=== PATIENT | female | born 1955 | race Caucasian/White ===

== ENCOUNTER 2022-11-25 12:13 | Outpatient (CLI) | payer BC, SELFPAY ==
[2022-11-25 14:06] LABS: Chloride* 102 mmol/L (96-114); Sodium* 140 mmol/L (135-149)
[2022-11-25 14:07] LABS: Potassium* 5.2 mmol/L (3.6-5.1)
[2022-11-25 14:09] LABS: Estimated Glomerular Filt Rate 63 ml/min
[2022-11-25 14:10] LABS: Blood Urea Nitrogen* 23 mg/dL (7-30); Calcium* 9.4 mg/dL (8.4-10.6); Carbon Dioxide* 32 mmol/L (20-32); Glucose* 95 mg/dL (60-115)
[2022-11-25 14:34] LABS: Vitamin D 25 Hydroxy* 47 ng/mL (30-80)
== END 2022-11-25 12:14 | disposition home or self-care (01) ==
PROVIDERS: PCP Family Medicine; Visit Provider Family Medicine
DX: I10 Essential (primary) hypertension (principal); E03.9 Hypothyroidism, unspecified; E55.9 Vitamin D deficiency, unspecified
CPT/HCPCS: 80048; 82306; 84443

== ENCOUNTER 2023-04-03 10:57 | Emergency (ER) | payer BC, SELFPAY ==
[2023-04-03 11:01] VITALS: BP 133/97; PULSE 66; RESP 20; TEMP 36.3; O2SAT 90; BMI 51.5
--- NOTE | 2023-04-03 13:41 | CRLHL7_ITS ---
For Patients: As a result of the Century Cures Act, medical imaging exams and procedure reports are released immediately into your electronic medical record. You may view this report before your referring provider. If you have questions, please contact your health care provider. INDICATION: Leg pain and swelling. TECHNIQUE: Ultrasound venous duplex lower extremity bilateral. Compression venous exam was performed using pino-scale, color Doppler, and spectral Doppler imaging. COMPARISON: None. FINDINGS: Sonographic imaging demonstrates the common femoral, deep femoral, superficial femoral, popliteal, posterior tibial and greater saphenous veins to be fully compressible with normal color Doppler blood flow in both lower extremities. There is moderate superficial soft tissue swelling of the right calf. IMPRESSION: No evidence of deep venous thrombosis. Moderate superficial soft tissue swelling of the right calf. Dictated by Charan Porter MD @ 04/03/2023 3:45:35 PM (Electronically Signed)
[2023-04-03 14:55] VITALS: BP 150/81; PULSE 62; O2SAT 94
--- NOTE | 2023-04-03 14:56 | ED.NURSE ---
Pt R leg elevated with pillows and blankets.
--- NOTE | 2023-04-07 14:00 | ED.GENADULT ---
HPI - General Adult General Chief complaint: Edema Stated complaint: R calf swollen Time Seen by Provider: 04/03/23 13:28 History of Present Illness HPI narrative: 68-year-old woman presenting to the emergency department upon recommendation of care provider for evaluation redness in the right lower extremity. Sounds as though this may have been going on for a day or 2. Does have a history of claudication in this right lower leg. She has noticed a little swelling on the left as well. Not really having pain. No chest pain or shortness of breath. No noted trauma. No fever. Does not recall a history of cellulitis. Does have history of peripheral edema. Related Data Previous Rx's Medication Instructions Recorded fluticasone 250 mcg-salmeterol 50 1 inh inhalation BID #60 ea 06/16/22 mcg/dose blistr powdr for inhalation (Advair Diskus) betamethasone dipropionate 0.05 % 1 applic topical BID PRN itching 10/14/22 topical ointment #45 grams levothyroxine 50 mcg tablet 50 mcg PO QDAY #90 tabs 11/25/22 trazodone 100 mg tablet 100 mg PO QHS #90 tabs 11/25/22 bupropion HCl 300 mg 24 hr tablet, 300 mg PO QAM #90 tabs 12/21/22 extended release albuterol sulfate 90 mcg/actuation 2 puff inhalation Q4H PRN 01/09/23 aerosol inhaler shortness of breath or wheezing #8.5 grams tiotropium bromide 2.5 2 inh inhalation Q24H #4 grams 01/09/23 mcg/actuation mist for inhalation (Spiriva Respimat) escitalopram oxalate 20 mg tablet 20 mg PO DAILY #90 tabs 02/06/23 ergocalciferol (vitamin D2) 1,250 50,000 unit PO QWEEK #12 caps 02/16/23 mcg (50,000 unit) capsule diclofenac sodium 75 mg 75 mg PO BID PRN pain #60 tabs 03/09/23 tablet,delayed release nicotine 14 mg/24 hr daily 1 patch transdermal QDAY #14 ea 03/26/23 transdermal patch nicotine 21 mg/24 hr daily 1 patch transdermal QDAY #14 ea 03/26/23 transdermal patch nicotine 7 mg/24 hr daily 1 patch transdermal Q24H #28 ea 03/26/23 transdermal patch Allergies Allergy/AdvReac Type Severity Reaction Status Date / Time No Known Drug Allergies Allergy Verified 04/03/23 11:06 Review of Systems Status of ROS: Reports: 6 or more systems reviewed and unremarkable except as noted in History and below [facility] Medical History Hypertension ?I10 - Essential (primary) hypertension (ICD-10) Generalized anxiety disorder ?F41.1 - Generalized anxiety disorder (ICD-10) Psoriasis ?L40.9 - Psoriasis, unspecified (ICD-10) Vitamin D deficiency ?E55.9 - Vitamin D deficiency, unspecified (ICD-10) Tubular adenoma of colon (04/03/20) ?D12.6 - Benign neoplasm of colon, unspecified (ICD-10) Tobacco use disorder (03/17/08) ?F17.200 - Nicotine dependence, unspecified, uncomplicated (ICD-10) Moderate episode of recurrent major depressive disorder (09/05/21) ?F33.1 - Major depressive disorder, recurrent, moderate (ICD-10) Insomnia ?G47.00 - Insomnia, unspecified (ICD-10) Hypothyroidism (12/21/21) ?E03.9 - Hypothyroidism, unspecified (ICD-10) Claudication of right lower extremity ?I73.9 - Peripheral vascular disease, unspecified (ICD-10) Chronic obstructive pulmonary disease ?J44.9 - Chronic obstructive pulmonary disease, unspecified (ICD-10) Alcohol dependence in remission ?F10.21 - Alcohol dependence, in remission (ICD-10) Surgical History History of total bilateral knee replacement (2018) ?Z96.653 - Presence of artificial knee joint, bilateral (ICD-10) Social History Narrative: single, no kids, retired from [employer], alcoholic currently sober, smoker Smoking Status: Former smoker How often do you have a drink containing alcohol: never How often do you have six or more drinks on one occasion: Never AUDIT-C Alcohol total score: 0 Non-prescribed substance use: denies use Little interest or pleasure in doing things: nearly every day Feeling down, depressed, or hopeless: nearly every day Exam Narrative: Exam Narrative: Pleasant. NAD. Breathing easily. Lungs appear to be clear. Heart with regular rate rhythm. Abdomen is overweight soft. Cranial nerves 2-12 intact. GCS 15. Well-perfused peripherally though 2+ pitting edema in lower extremities though right greater than left. There is mild erythema up to mid calf on the right leg. A patch of what appears to be superficial venous varicosities on the left upper inner acevedo area. This right leg is not particularly tender to palpation. On reexamination I do appreciate some mild calor. Mild induration also the skin. Const: Documenting provider has reviewed patient's vital signs: yes Course Vital Signs Vital signs: Initial Vital Signs Temperature 97.4 F L 04/03/23 11:01 Temperature Source Temporal Artery Scan 04/03/23 11:01 Pulse Rate 66 04/03/23 11:01 Respiratory Rate 20 04/03/23 11:01 Blood Pressure 133/97 H 04/03/23 11:01 Blood Pressure Mean 109 H 04/03/23 11:01 Pulse Oximetry 90 04/03/23 11:01 Oxygen Delivery Method Room Air 04/03/23 11:01 Vital Signs Temperature 97.4 F L 04/03/23 11:01 Pulse Rate 66 04/03/23 11:01 Respiratory Rate 20 04/03/23 11:01 Blood Pressure 133/97 H 04/03/23 11:01 Pulse Oximetry 90 04/03/23 11:01 Oxygen Delivery Method Room Air 04/03/23 11:01 Temperature 97.4 F L 04/03/23 11:01 Pulse Rate 62 04/03/23 14:55 Respiratory Rate 20 04/03/23 11:01 Blood Pressure 150/81 H 04/03/23 14:55 Pulse Oximetry 94 04/03/23 14:55 Oxygen Delivery Method Room Air 04/03/23 14:55 Medical Decision Making MDM Narrative Medical decision making narrative: Certainly DVT and cellulitis are in the differential. Could just be some congestive changes. I think given mobility asymmetrical swelling would be prudent to do an ultrasound. Ultrasound of both lower extremities. ---I discussed findings with slot manager. Noted edema of the right lower leg. Suspicious for cellulitis I would say. COMPARISON: None. FINDINGS: Sonographic imaging demonstrates the common femoral, deep femoral, superficial femoral, popliteal, posterior tibial and greater saphenous veins to be fully compressible with normal color Doppler blood flow in both lower extremities. There is moderate superficial soft tissue swelling of the right calf. IMPRESSION: No evidence of deep venous thrombosis. Moderate superficial soft tissue swelling of the right calf. Following this study did place right leg in particular elevated above level of heart to assess for improvement. Color and calor did not change much at all. I think confirming diagnosis of cellulitis here. Important also to mobilize fluid. I did wrap with Tyler wraps both lower extremities. See patient discharge plan. Medical Records Medical records reviewed: Yes I reviewed the patient's medical records Discharge Plan Discharge Clinical Impression: Cellulitis, Edema, peripheral Patient Disposition: Home, Self-Care Condition: Stable Additional Instructions: It is extremely important that you elevate your legs at least as we did here, particularly your right leg, over this next week when at rest. You can decide whether you want use the Tyler wraps we put on here or use your own compression stockings. I am glad that you have a friend who can help you get these on. Be seen for marked increase in redness, pain, associated fever. Cephalexin from [facility] Prescriptions: No Action fluticasone propion-salmeterol [Advair Diskus] 250-50 mcg/dose blister with device 1 inh inhalation BID Qty: 60 12RF betamethasone dipropionate 0.05 % ointment 1 applic topical BID PRN (Reason: itching) Qty: 45 2RF trazodone 100 mg tablet 100 mg PO QHS Qty: 90 1RF bupropion HCl 300 mg tablet extended release 24 hr 300 mg PO QAM Qty: 90 1RF Spiriva Respimat 2.5 mcg/actuation mist 2 inh inhalation Q24H Qty: 4 4RF albuterol sulfate 90 mcg/actuation HFA aerosol inhaler 2 puff inhalation Q4H PRN (Reason: shortness of breath or wheezing) Qty: 8.5 5RF levothyroxine 50 mcg tablet 50 mcg PO QDAY Qty: 90 3RF escitalopram oxalate 20 mg tablet 20 mg PO DAILY Qty: 90 0RF ergocalciferol (vitamin D2) 1,250 mcg (50,000 unit) capsule 50,000 unit PO QWEEK Qty: 12 1RF diclofenac sodium 75 mg tablet,delayed release (DR/EC) 75 mg PO BID PRN (Reason: pain) Qty: 60 5RF nicotine 21 mg/24 hr patch 24 hour 1 patch transdermal QDAY Qty: 14 0RF nicotine 14 mg/24 hr patch 24 hour 1 patch transdermal QDAY Qty: 14 0RF nicotine 7 mg/24 hr patch 24 hour 1 patch transdermal Q24H Qty: 28 3RF Follow Up/Referrals: Omar Dominguez MD [Primary Care Provider] - Stand Alone Forms: My[facility] Info Instructions
== END 2023-04-03 16:15 | disposition home or self-care (01) ==
PROVIDERS: Emergency Provider Family Medicine; PCP Family Medicine
DX: L03.116 Cellulitis of left lower limb (principal); L03.115 Cellulitis of right lower limb; R60.9 Edema, unspecified
CPT/HCPCS: 93970; 99284

== ENCOUNTER 2023-12-01 11:56 | Emergency (ER) | payer BC, SELFPAY ==
[2023-12-01] VITALS (9 sets, daily range): BP systolic 137–146; BP diastolic 84–103; PULSE 56–75; RESP 20; TEMP 36; O2SAT 82–97; BMI 49.8
--- NOTE | 2023-12-01 12:27 | XR_ITS ---
Final Report Patient: VICK VERDE Facility:?[facility] Patient ID:?[id number] Site Patient ID:?[id number] Site :?1955 Study:?XRay Chest PA & LATERAL-12/01/2023 12:56:20 PM Ordering Physician:ELIAS Final Report: INDICATION: Chest pain, dyspnea. TECHNIQUE: Chest radiographs, 2 views. COMPARISON: CT chest 07/10/2021. FINDINGS: Cardiovascular/Mediastinum: Stable cardiac silhouette. Tortuous thoracic aorta. Unremarkable. Lungs: Patchy ill-defined opacification of the right lower lobe, with obscuration of several the lower thoracic vertebral bodies. Linear, bandlike opacification of the lung bases bilaterally, likely subsegmental atelectasis and/or scarring. No pulmonary vascular congestion. Airways: Trachea remains midline. Pleura: Persistent blunting of the right costophrenic angle likely due to scarring. No pleural effusions or pneumothorax. Bones: No acute osseous abnormalities. Old healed right-sided rib fractures. 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 Severe degeneration of the right acromioclavicular joint. Degenerative changes of the thoracic spine. Upper abdomen: Unremarkable. IMPRESSION: Findings suspicious for a right lower lobar pneumonia in the appropriate clinical setting. Dictated by Eugenio Araiza MD @ 12/02/2023 2:30:16 AM (Electronic Signatur
--- OUTSIDE RECORDS SUMMARY | 2023-12-01 12:37 | XMS_ITS | Data Portability ---
Author Name Unknown Address [address] [place] [address] Phone [phone] Organization [facility] Address [address] [place] [address] Care Team Providers Care Accounts Payable Or Receivable Clerk Name Role Phone [facility] OTHER Assessment Encounter Date Assessment Date Assessment LastModified by Organization Details LastModified Time 09/19/2021 09/19/2021 The above findings do not support the presence of documented illness that would preclude the patient from participation in inpatient chemical dependence treatment. Based on patient history and the above findings, there's no evidence of communicable disease at this time. Okay to utilize [place] Routine Standing Orders as Needed. Not available 09/19/2021 11:10:43 Plan of Treatment Reminders Order Date Submit Date Provider Last Modified By Organization Details Last Modified Time Details Appointments None recorded. Lab None recorded. Referral None recorded. Procedures None recorded. Surgeries None recorded. Imaging None recorded. Medication Orders Advair Diskus 250 mcg-50 mcg/dose powder for inhalation 2020 [facility], [address] [place] [address], [place] [address], [place], [address], 17:47:32 albuterol sulfate HFA 90 mcg/actuati on aerosol inhaler 2020 [facility], [address] [place] [address], [facility] [address], [place], [address], 17:47:32 hydroxyzine pamoate 25 mg capsule 2020 [email or web address] Not available 08:50:43 trazodone 50 mg tablet 2020 021 [email or web address] Not available 08:50:43 Patient TargetsNo targets recorded. Patient Instructions Encounter Date Encounter Id Patient Instructions Last Modified By Organization Details Last Modified Time 09/19/2021 [id number] Patient is clear ed for admission into chemical dependence treatment facility. The patient is free of communicable diseases per patient self. Counseled on smoking cessation and discussed pharmacologic and non-pharmacologic options for quitting. Call -NOW for free smoking cessation support. Ok to admit with current standing orders per facility. In house psychiatrist referrer Recommend frequent hand washing and social distancing, reporting any signs/ sx of COVID-19 to nursing staff immediately. ATTN Nursing: please continue to check/ record temperature 2x daily and screen for cough, fever, sob. Continue current care plan at treatment facility. Standing orders signed per facility request. Infection control is important while in a congregant living facility, especially amid the COVID-19 pandemic. The following measures can help to mitigate the spread of infections: 1. Frequent hand washing with soap and water or hand emergency medicine physician. 2. Avoid touching your face. 3. Maintain social distance of at least 6 feet apart from other people. 4. Wear a mask or cloth face covering if available. 5. Report any fever, malaise, cough, or shortness of breath to nursing staff immediately. Quarantine from others if these symptoms develop. [email or web address] Not available 09/19/2021 11:25:00 Patient advised to continue maintaining contact with helpful treatment resources and/or support groups even if he is initially able to achieve abstinence. Patient to contact a provider or clinic if concerned about any increased risk of relapse due to increased stress, anxiety, family issues, work-related problems, or increased craving. Educated on the importance of quitting smoking. Discussed pharmacologic and nonpharmacologic methods of quitting. Follow-up actions: Advised patient to call [phone] for free smoking cessation support and resources. Due to the covid-19 situation, this visit is being conducted via telemedicine/video conference per the direction of state and federal recommendations. I have reviewed this with my client have consented to services being conducted in this format. [email or web address] Not available 09/19/2021 11:25:13 Reason for Referral None Reported. Problems Name Status Onset Date Resolution Date Notes Provider Name and Address Organization Details Recorded Time Pulmonary emphysema Active Isabella dean, [employer] 09/19/2021 11:13:09 Vitamin D deficiency Active Isabella Sappl null, [employer] 09/19/2021 11:13:39 Alcohol dependence Active last use 09/04/21, 1.75 liters of vodka q 2 days, started at the age of 16 Isabella Sappl null, [employer] 09/19/2021 11:15:02 Insomnia Active 09/19/20 21 Ayaan Payne NP, [address] [facility], [place], [address] , [employer] 09/19/2021 11:18:02 Anxiety Active Isabella dean, [employer] 09/19/2021 11:24:18 Problem Notes None recorded. Procedures Surgical History Date Name Laterality Status Provider Name and Address Organization Details Recorded Time Knee Replacement completed Isabella Rajput oel dianne, [employer] 09/19/2021 11:16:30 Imaging Results None recorded. Procedure Notes None recorded. Medical Equipment None Reported. Allergies No known drug allergies Medications Name Sig Start Date Stop Date Status Note LastModified by Organization Details LastModified Time trazodone 50 mg tablet Take 1 tablet as needed by oral route at bedtime. 2020 active Not Available Not Available Not Avai lable Advair Diskus 250 mcg-50 mcg/dose powder for inhalation Inhale 1 puff twice a day by inhalation route. 2020 active RINSE MOUTH AFTER USE Not Available Not Available Not Available albuterol sulfate HFA 90 mcg/actuatio n aerosol inhaler Inhale 2 puffs every 4 hours by inhalation route as needed. 2020 active Not Available Not Available Not Avai lable hydroxyzine pamoate 25 mg capsule Take 1 capsule as needed by oral route at bedtime. 2020 active Not Available Not Available Not Avai lable Vitamin D2 25,000 unit capsule Take 2 capsules every week by oral route. active Not Available Not Available No t Available fluticasone furoate 100 mcg-vilanter ol 25 mcg/dose inhalation powder Inhale 1 puff twice a day by inhalation route. active Not Available Not Available No t Available Vitals Date Recorded Body height Body mass index (BMI) Body weight Respiratory rate Body temperature Oxygen saturation Oxygen saturation in Arterial blood by Pulse oximetry Systolic blood pressure Diastolic blood pressure Provider Name and Address Organization Details Last Updated DateTime 162.56 cm 40.2 kg/m2 269111. 61 g 16 /min 97.4 [degF] 100 % 100 % 130 mm[Hg] 80 mm[Hg] Isabella Claire dianne [employer] 11:11:14 Social History Question Answer Notes LastModified by [employer] 24 ion Details LastModified Time Tobacco Smoking Status Former Smoker quit 3 months ago Isabella dean [employer] 09/19/2021 11:15:46 What Is Your Level Of Alcohol Consumption? Heavy Information not available 09/19/2021 Are You Blind Or Do You Have Difficulty Seeing? No Information not available 09/19/2021 What Is Your Level Of Caffeine Consumption? Occasional Information not available 09/19/2021 Are You Deaf Or Do You Have Serious Difficulty Hearing? No Information not available 09/19/2021 What Is The Highest Grade Or Level Of School You Have Completed Or The Highest Degree You Have Received? [id number] Information not available 09/19/2021 What Was The Date Of Your Most Recent Tobacco Screening? 09/19/2021 Information not available 09/19/2021 What Is Your Relationship Status? Information not available 09/19/2021 Are You Sexually Active? No Information not available 09/19/2021 Do You Feel Stressed (tense, Restless, Nervous, Or Anxious, Or Unable To Sleep At Night)? [id number] Information not available 09/19/2021 Do You Use Any Illicit Or Recreational Drugs? No Information not available 09/19/2021 Do You Or Have You Ever Used Any Other Forms Of Tobacco Or Nicotine? No Information not available 09/19/2021 Sex: Female Functional Status Question Answer Note LastModified by Organization D etails LastModified Time Are you able to care for yourself? Yes Information n ot available 09/19/2021 Mental Status Question Answer Note LastModified by Organization D etails LastModified Time Do you have difficulty concentrating, remembering or making decisions? No Information no t available 09/19/2021 Family History Nothing Reported. Medical History No medical history recorded. Gynecological HistoryNo gynecological history recorded. Obstetrics History GPAL:G 0 P 0 0 0 0 Past Encounters Encounter ID Performer Location Encounter Start Date Encounter Closed Date Diagnosis/Indication [id number] Ayaan Payne NP, [address] [address] 09/19/2021 11:07:54 09/20/2021 03:09:37 Alcohol dependence Pulmonary emphysema Insomnia Vitamin D deficiency Renewal of prescription Health Concerns Section Related Observation LastModified by Organization Detai ls LastModified Time None Recorded Concern Status LastModified by Organization Details LastModified Time None Recorded Advance Directives Directive None Recorded Payers Encounter Date Sequence Insurance Name Policy Number Policy Currie Covered Member ID Currie Member ID Guarantor Name 09/19/2021 1 [id number]MEDICA[place]AC[place] - HMO) [id number] Eugenia White [id number] Eugenia White Notes Date Note Type Note Provider Name and Address Organization Details Recorded Time 09/19/2021 text/html HPI Notes: This is a New patient who Presents for H+P as required for admission A 66 years old patient residing at [facility] with a history of alcohol abuse, anxiety. Patient admitted for alcohol abuse (oral ), she denies use of other drugs. Patient presents for an admission H&P. required for admission to a chemical dependence treatment program. She has used alcohol for 50 years. last use was 09/04/21, she denies cravings and withdrawal symptoms. Patient drink about 1.75 ml of vodka daily, she denies hx of seizures, palpitation and tremor. She denies suicidal thoughts, states she was hospitalized for suicidal attempt in the past. Patient reports he is sexually active. Patient former smoker patient: Denies . Covid Vaccines:Had Covid vaccines The patient is established with a primary care provider. The patient is not established with a mental health provider. The patient has been hospitalized recently. Start time of video conference: 1000 End time of video conference: 1025 Location of patient: [facility] Location of medical assisting program director: Home Location of provider: Home Patient verbally consented to receiving visit videoconference. A [employer] videoconference visit is being conducted rather than a face to face visit due to CDC recommendations for social distancing amid the COVID-19 pandemic. Do you have a fever?: no Do you have a cough?: no Do you have shortness of breath?: no Verbally consent given for services, release of information, and record sharing. Written consent given by patient for services, release of information, and record sharing. Notice of Privacy Practices presented at this time. Written consent to be faxed by facility staff to [facility]. Ayaan Payne NP, [address] [facility], [place], [address], [facility] 09/19/2021 17:47:53 OBGyn Episode No OBEpisode recorded.
--- OUTSIDE RECORDS SUMMARY | 2023-12-01 12:37 | XMS_ITS | Clinical Summary ---
Author Name Unknown Organization [facility] Address [place], [place] [address] Care Team Providers Care Lumite Injector Name Role Phone VinDami armstrong Primary Care Provider [phone] Allergies No known active allergies Medications Medication Sig Dispensed Refills Start Date End Date Status ergocalciferol (VITAMIN D2; DRISDOL) 50,000 unit capsuleIndications :Vitamin D deficiency Take 1 Capsule (50,000 units) by mouth once weekly. 4 Capsule 0 09/13/2021 Active melatonin 10 mg capIndications:Ins omnia, unspecified type Take two capsules by mouth at bedtime. 90 Capsule 0 09/11/2021 Active Additional Information Patient taking differently: 10 mgOral BEDTIME, Reported on 12/21/2021 traZODone (DESYREL) 50 mg tabletIndications: Insomnia, unspecified type Take 1 Tablet (50 mg) by mouth at bedtime if needed for Sleep. 30 Tablet 0 09/11/2021 Active hydrOXYzine pamoate (VISTARIL) 25 mg capsuleIndications :Anxiety Take 1 Capsule (25 mg) by mouth at bedtime if needed for Anxiety. 30 capsule. 0 09/11/2021 Active albuterol HFA (PRO-AIR; VENTOLIN; PROVENTIL) 90 mcg/actuation inhalerIndications :Smokers' cough (HC),Wheezing Inhale 1-2 Puffs by mouth every 4 hours if needed for shortness of breath 18 g 0 09/11/2021 Active clobetasol 0.05% (TEMOVATE 0.05% OINTMENT) 0.05 % ointmentIndication s:Psoriasis Apply to affected area 2 times per day for up to 2 weeks as directed. 45 g 0 09/12/2021 Active fluticasone propion-salmeteroL (ADVAIR) 250-50 mcg/Dose diskus inhaler Inhale 1 Puff by mouth every 12 hours. 0 Active levothyroxine (SYNTHROID) 50 mcg tablet Take 50 mcg by mouth before breakfast. 0 Active Active Problems Problem Noted Date Diagnosed Date Other emphysema 12/21/2021 Alcohol use disorder, severe, dependence 022 Vitamin D deficiency 12/21/2021 Asthma 12/21/2021 Hypothyroid 12/21/2021 Major depressive disorder, recurrent episode, mo derate 09/05/2021 Tubular adenoma of colon 04/03/2020 Overview: The polyps removed from your colon were high risk polyps, no evidence of cancer, will need repeat colonoscopy in 5 years. Pain in both knees 11/27/2017 Pain, joint, knee, right 11/27/2017 Pain in joint of left knee 11/27/2017 Pain in both lower legs 11/27/2017 Claudication 11/27/2017 Depression with anxiety 03/22/2010 Unspecified menopausal and postmenopausal disord er 03/17/2008 Tobacco use disorder 03/17/2008 Plantar fascial fibromatosis 03/17/2008 Other psoriasis 03/17/2008 Alcohol dependence in remission Overview: She has been in treatment on more than one occasion. She has used AA in the past, and does like going to meetings. She has two sponsors that she feels very close to . She feels strongly at present that she can quit by these means, and does not need a return to treatment. She has had 3 DUI in the past and has gone to halfway for this. Last was 10 years ago. Polyp of colon Immunizations Name Administration Dates Next Due COVID-19 vaccine (Fabi-J&J) JOAN MARROQUIN 1 Pneumococcal Poly,23-Valent (Pneumovax) 03/27/20 20 Tdap 03/27/2020 Zoster (Shingrix-RZV, recombinant) 06/07/2020, Family History Medical History Relation Name Comments Suicidality Brother 6 Mikel 17 years ago on August 11 Cancer-colon Father age 84 Other Father copd Psoriasis Father Cancer-colon Maternal Uncle Other Paternal Grandfather farmers lung Hypertension Sister 1 Carmelina Relation Name Status Comments Brother 1 Felipe Alive Brother 2 Omar Alive Brother 3 Edinson Alive Brother 4 Peewee Alive Brother 5 Harjit Alive Brother 6 Mikel Brother 7 William Alive he is her drink ing partner Father Maternal Grandfather Maternal Grandmother Maternal Uncle Other Mother Irasema (Age 93) Recently d ied in March of 2021 Paternal Grandfather Paternal Grandmother Sister 1 Carmelina Alive Sister 2 Amanda Alive Sister 3 Liza Alive Is her Twin Social History Tobacco Use Types Packs/Day Years Used Date Smoking Tobacco: Former Cigarettes 1 50 0 03/22/1970 - 03/22/2020 Smokeless Tobacco: Never Tobacco Cessation:Counseling Given: No Comments:quit 1 month ago Alcohol Use Standard Drinks/Week Comments Yes 7 (1 standard drink = 0.6 oz pur e alcohol) vodka- half of a 1.75/day PHQ-2 Answer Date Recorded PHQ-2 TOTAL SCORE 4 12/21/2021 Social Connections Answer Date Recorded Frequency of Communication with Friends and Fami ly Not on file 10/19/2021 Alcohol Use Answer Date Recorded How often do you have a drink containing alcohol ? 4 09/04/2021 How many drinks containing a lcohol do you have on a typical day when you are drinking? 2 09/04/2021 How often do you have five or more drinks on one occasion? 4 09/04/2021 Financial Resource Strain Answer Date R ecorded Difficulty of Paying Living Expenses Not on file 10/19/2021 Difficulty of Paying Living Expenses Not on file 10/19/2021 Education Answer Date Recorded What is the highest level of school you have completed or the highest degree you have received? Some college, no degree 09/04/2021 Sex and Gender Information Value Date Recorded Sex Assigned at Not on file Gender Identity Not on file Sexual Orientation Not on file Obstetrics History Last Filed Vital Signs Vital Sign Reading Time Taken Comments Blood Pressure 126/89 12/24/2021 6:05 AM PIN STICKER Pulse 84 12/24/2021 6:05 AM PIN STICKER Temperature 36.6 ??C (97.8 ??F) 12/24/2021 6:05 AM CS T Respiratory Rate 12 12/24/2021 6:05 AM PIN STICKER Oxygen Saturation 94% 12/24/2021 6:05 AM PIN STICKER Inhaled Oxygen Concentration - - Weight 113.9 kg (251 lb) 12/21/2021 4:00 AM PIN STICKER Height 162.6 cm (5' 4) 12/21/2021 4:00 AM PIN STICKER Body Mass Index 43.08 12/21/2021 4:00 AM PIN STICKER Plan of Treatment Health Maintenance Due Date Last Done Comments Mammogram for age 45-[address] (for lung CA) ag e 50-80 2007 BMI (ht and wt on same day) for age 18+ 06/07/2021 06/07/2020, 08/25/2018, 05/26/2018, Additional history exists DEXA/DXA scan for age 65+ 2022 Pneumococcal series for age 65+ (2 of 2 - PCV) 2022 03/27/2020 Lipids for age 45-75 01/16/2022 01/16/2017 Depression screening for age 12+ 12/20/2022 12/20/2021, 09/03/2021, 08/24/2020, Additional history exists COVID-19 vaccine series (2 - 2022- season) 2023 09/12/2021 Influenza for age 65+ 06/19/2023 Colonoscopy through age 75 04/03/2025 04/03/2020 Tetanus booster 03/27/2030 03/27/2020 Hepatitis C screening for ag e 18-79 Completed 03/27/2020 Tdap Completed 03/27/2020 Zoster (shingles) series for age 50+ Completed 06/07/2020, 03/27/2020 Advance Directives Latest Code Status on File Code Status Date Activated Date Inactivated Comments Full Code 12/23/2021 2:40 PM 12/24/2021 4:43 PM Question Answer Comments Code Status Discussion: Reviewed Preferences Code Status History Code Status Date Activated Date Inactivated Comments Full Code 12/21/2021 4:32 AM 12/23/2021 2:40 PM Question Answer Comments Code Status Discussion: Unable to Assess Preferences, Provider to review later Full Code 09/05/2021 10:13 AM 09/17/2021 2:26 PM Question Answer Comments Code Status Discussion: Reviewed Preferences Full Code 09/04/2021 4:17 PM 09/05/2021 10:13 AM Question Answer Comments Code Status Discussion: Unable to Assess Preferences, Provider to review later Full Code 04/03/2020 9:35 AM 04/03/2020 3:25 PM Question Answer Comments Code Status Discussion: Discussed Care Teams Lumite Injector Relationship Specialty Start Date End Date Dami Recio DO [address] [place] [address] PCP - General Family Practice 05/30/20
[2023-12-01 13:01] LABS: PCR FLU A Negative PCR FLU A (Negative); PCR FLU B Negative PCR FLU B (Negative); PCR RSV Negative PCR RSV (Negative); SARS PCR* Negative SARS-CoV-2 (Negative)
--- NOTE | 2023-12-01 13:07 | ED.SOB ---
HPI - SOB/Dyspnea General Date Seen: 12/01/23 Chief Complaint: Shortness of Breath/Dyspnea Stated Complaint: Shortness of breath Time Seen by Provider: 12/01/23 12:18 Source: patient Mode of arrival: ambulatory Limitations: no limitations History of Present Illness HPI Narrative: Patient is a 68-year-old female presenting to the emergency department for shortness of breath. She has a history of COPD and says she is trying to quit smoking. Last cigarette was 2 days ago. She states has been going on for a week now it feels like her previous COPD episodes. She has been using home inhalers with improving her symptoms but she states symptoms are going away so she came to emergency department to be evaluated. Denies fevers, chills, weakness, numbness, headache, vision changes. She states she has occasional dizziness and chest pain but is not having no symptoms at this time. States chest pain is relatively mild. She also states she stop taking her Synthroid a couple months ago and has been weaning herself off her depression medication. She has been doing this on her own without input of her primary care provider. Has not had any abdominal pain, diarrhea, constipation. Not aware of any sick contacts. Has not noticed any weight gain or lower extremity swelling. No history of blood clot Related Data Home Medications Medication Instructions Recorded Confirmed bupropion HCl 300 mg 24 hr tablet, 100 mg PO QAM 12/01/23 12/01/23 extended release escitalopram oxalate 20 mg tablet 5 mg PO DAILY 12/01/23 12/01/23 Previous Rx's Medication Instructions Recorded levothyroxine 50 mcg tablet 50 mcg PO QDAY #90 tabs 11/25/22 ergocalciferol (vitamin D2) 1,250 50,000 unit PO QWEEK #12 caps 02/16/23 mcg (50,000 unit) capsule albuterol sulfate 90 mcg/actuation 2 puff inhalation Q4H PRN 06/18/23 aerosol inhaler shortness of breath or wheezing #8.5 grams tiotropium bromide 2.5 2 inh inhalation Q24H 90 days #4 06/18/23 mcg/actuation mist for inhalation grams (Spiriva Respimat) betamethasone dipropionate 0.05 % 1 applic topical BID PRN itching 11/16/23 topical ointment #45 grams trazodone 100 mg tablet 100 mg PO QHS #90 tabs 11/16/23 azithromycin 500 mg tablet 500 mg PO DAILY 5 days #5 tabs 12/01/23 prednisone 20 mg tablet 40 mg (2 x 20 mg) PO DAILY #10 tabs 12/01/23 Allergies Allergy/AdvReac Type Severity Reaction Status Date / Time No Known Drug Allergies Allergy Verified 12/01/23 12:12 Review of Systems Status of ROS: Reports: 10 or more systems reviewed and unremarkable except as noted in History and below PFSH PFS Medical History Hypertension ?I10 - Essential (primary) hypertension (ICD-10) Generalized anxiety disorder ?F41.1 - Generalized anxiety disorder (ICD-10) Psoriasis ?L40.9 - Psoriasis, unspecified (ICD-10) Vitamin D deficiency ?E55.9 - Vitamin D deficiency, unspecified (ICD-10) Tubular adenoma of colon (04/03/20) ?D12.6 - Benign neoplasm of colon, unspecified (ICD-10) Tobacco use disorder (03/17/08) ?F17.200 - Nicotine dependence, unspecified, uncomplicated (ICD-10) Moderate episode of recurrent major depressive disorder (09/05/21) ?F33.1 - Major depressive disorder, recurrent, moderate (ICD-10) Insomnia ?G47.00 - Insomnia, unspecified (ICD-10) Hypothyroidism (12/21/21) ?E03.9 - Hypothyroidism, unspecified (ICD-10) Claudication of right lower extremity ?I73.9 - Peripheral vascular disease, unspecified (ICD-10) Chronic obstructive pulmonary disease ?J44.9 - Chronic obstructive pulmonary disease, unspecified (ICD-10) Alcohol dependence in remission ?F10.21 - Alcohol dependence, in remission (ICD-10) Surgical History History of total bilateral knee replacement (2018) ?Z96.653 - Presence of artificial knee joint, bilateral (ICD-10) Social History Narrative: single, no kids, retired from [employer], alcoholic currently sober, smoker Smoking Status: Former smoker Do you use any of these nicotine containing products: None How often do you have a drink containing alcohol: never How often do you have six or more drinks on one occasion: Never AUDIT-C Alcohol total score: 0 Non-prescribed substance use: denies use Little interest or pleasure in doing things: several days Feeling down, depressed, or hopeless: several days Exam Narrative: Exam Narrative: Const: Well-nourished, Well-developed, in moderate distress Eyes: PERRL, no conjunctival injection, and symmetrical lids HENT: Atraumatic external nose and ears. Moist mucous membranes. Neck: Symmetric, trachea midline, No thyromegaly. CVS: RRR, No murmurs or gallops. Peripheral pulses 2+ and equal in all extremities RESP: Increased work of breathing, diffusely decreased breath sounds throughout her lung GI: Nontender/Nondistended, No rebound or guarding. MSK:Extremities w/o deformity, Normal Active ROM Skin: Warm, Dry. No rashes or lesions. Neuro: Normal Muscle tone, No focal neurological deficits. Psych: Awake, Alert, & Oriented x3. Appropriate mood and affect. Const: Vital Signs, click to edit/add: Vital Signs - 24 hr 12/01/23 12:15 12/01/23 12:36 12/01/23 12:45 Temperature 96.8 F L Pulse Rate 65 74 Pulse Rate [Pulse Oximeter] 67 Respiratory Rate 20 Blood Pressure Blood Pressure [Ri ght Upper Arm] 146/103 H Pulse Oximetry 91 82 L 86 L Oxygen Delivery Me thod Room Air 12/01/23 13:00 12/01/23 13:17 12/01/23 13:30 Temperature Pulse Rate 75 64 56 L Pulse Rate [Pulse Oximeter] Respiratory Rate Blood Pressure Blood Pressure [Ri ght Upper Arm] Pulse Oximetry 84 L 94 97 Oxygen Delivery Me thod 12/01/23 13:47 12/01/23 13:48 12/01/23 14:00 Temperature Pulse Rate 62 61 62 Pulse Rate [Pulse Oximeter] Respiratory Rate Blood Pressure 137/84 Blood Pressure [Ri ght Upper Arm] Pulse Oximetry 89 91 90 Oxygen Delivery Me thod Course Vital Signs Vital signs: Initial Vital Signs Temperature 96.8 F L 12/01/23 12:15 Temperature Source Temporal Artery Scan 12/01/23 12:15 Pulse Rate 67 12/01/23 12:15 Pulse Rhythm Regular 12/01/23 12:15 Pulse Strength 3+ Normal 12/01/23 12:15 Respiratory Rate 20 12/01/23 12:15 Blood Pressure 146/103 H 12/01/23 12:15 Blood Pressure Mean 117 H 12/01/23 12:15 Blood Pressure Position Sitting 12/01/23 12:15 Pulse Oximetry 91 12/01/23 12:15 Oxygen Delivery Method Room Air 12/01/23 12:15 Vital Signs Temperature 96.8 F L 12/01/23 12:15 Pulse Rate 67 12/01/23 12:15 Respiratory Rate 20 12/01/23 12:15 Blood Pressure 146/103 H 12/01/23 12:15 Pulse Oximetry 91 12/01/23 12:15 Oxygen Delivery Method Room Air 12/01/23 12:15 Temperature 96.8 F L 12/01/23 12:15 Pulse Rate 62 12/01/23 14:00 Respiratory Rate 20 12/01/23 12:15 Blood Pressure 137/84 12/01/23 13:47 Pulse Oximetry 90 12/01/23 14:00 Oxygen Delivery Method Room Air 12/01/23 12:15 Medications Administered Medications: Discontinued Medications Generic Name Dose Route Start Last Admin Trade Name Freq PRN Reason Stop Dose Admin Albuterol/Ipratropium 1 neb 12/01/23 12:27 12/01/23 13:23 Iprat-Albut 0.5-2.5 Mg/3 Ml Neb IH 12/01/23 12:28 1 neb ONCE ONE Administration Methylprednisolone Sodium Succinate 125 mg 12/01/23 12:27 12/01/23 13:23 Methylprednisolone Sod Succ 62.5 Mg/Ml (125) IVP 12/01/23 12:28 125 mg ONCE ONE Administration MDM - SOB/Dyspnea MDM Narrative Medical decision making narrative: Patient is a 68-year-old female presenting to emergency department for shortness of breath. Most likely she is suffering from COPD as she states this feels like her previous COPD exacerbations. Her lungs are also very tight on exam. Other differential includes pneumonia, pneumothorax, CHF, pleural effusions. Will give her a DuoNeb breathing treatment along with Solu-Medrol. CBC, CMP, troponin, COVID since flu/RSV, BNP all ordered. Also ordered EKG. TSH was done since she has not been taking her Synthroid. Lab work all returned showing no concerning abnormalities. Her TSH is still pending. BNP was 2230. Chest x-ray does not show any signs of pleural edema on my exam and she does not appear to have acute CHF exacerbation. COVALFREDO says flu/RSV was negative. I do not see any signs of pneumothorax or pneumonia. After she received her breathing treatment she states she is feeling much better. She is satting in the low 90s at this time which is acceptable for COPD patient. I do not believe we need to wait for the TSH says it will take while at this point and she is feeling much better. EKG does have some diffuse T-wave inversions but we have no comparison EKGs. She her only has small chest pain she states and has been pain-free most of the day. Troponin within normal limits. With the symptoms resolved after breathing treatments and not believe this is ACS related and again most likely to be COPD. I will discharge her home on azithromycin and prednisone for her COPD. She is agreeable to this plan. I informed her to restart taking her Synthroid and speak to her doctor about her medications. She states she is agreeable to this plan. X-ray read returned the following day showing possible pneumonia. Patient is already covered with antibiotics and further intervention is not necessary at this time Lab Data Labs: Lab Results 12/01/23 12/01/23 Range/Units 12:18 13:05 WBC 6.46 (4.50-11.00) K/uL RBC 5.21 H (4.00-5.20) m/uL Hgb 15.4 (12.0-16.0) gm/dL Hct 50.2 (33.0-51.0) % MCV 96 (80-100) fL MCH 30 (26-34) pg MCHC 31 L (32-36) gm/dL RDW Coeff of Mamta 14.7 (11.5-15.5) % Plt Count 245 (140-440) K/uL Neut % (Auto) 70.5 (42.0-72.0) % Lymph % (Auto) 19.7 L (20-44) % [place] % (Auto) 7.1 (0.0-11.0) % Eos % (Auto) 2.0 (0.0-7.0) % Baso % (Auto) 0.5 (0.0-3.0) % Neut # (Auto) 4.56 (1.7-7.0) K/uL Lymph # (Auto) 1.30 (0.90-2.90) K/uL [place] # (Auto) 0.50 (0.00-0.90) K/UL Eos # (Auto) 0.13 (0.00-0.50) K/uL Baso # (Auto) 0.03 (0.00-0.30) K/uL Abs Immat Gran (auto) 0.01 (0.00-0.30) K/uL Imm/Tot Granulo (auto) 0.2 % Sodium 139 (135-149) mmol/L Potassium 4.2 (3.6-5.1) mmol/L Chloride 97 (96-114) mmol/L Carbon Dioxide 35 H (20-32) mmol/L Anion Gap 7 (7-15) mEq/L BUN 14 (7-30) mg/dL Creatinine 0.7 (0.5-1.5) mg/dL Estimated Creat Clear 47.79 Estimated GFR 95 ml/min Glucose 100 (60-115) mg/dL Calcium 9.4 (8.4-10.6) mg/dL Total Bilirubin 0.4 (0.1-1.5) mg/dL AST 16 (12-35) U/L ALT 11 (4-35) U/L Alkaline Phosphatase 99 (40-150) U/L NT-Pro-B Natriuret Pep 2230 pg/mL Total Protein 8.0 (6.0-8.3) g/dL Albumin 4.3 (3.3-5.0) g/dL TSH 4.360 H (0.270-4.200) uIU/mL Free T4 1.29 (0.70-1.85) ng/dL SARS-CoV-2 (PCR) Negative SARS-CoV-2 (Negative) Influenza Type A (PCR) Negative PCR FLU A (Negative) Influenza Type B (PCR) Negative PCR FLU B (Negative) RSV (PCR) Negative PCR RSV (Negative) POC Troponin I 0.00 L (0.01-0.04) ng/ml Imaging Data Chest x-ray: Radiologist's impression: Findings suspicious for a right lower lobar pneumonia in the appropriate clinical setting. ECG Data Attestation: I personally reviewed and interpreted this ECG as follows: Prior ECG tracings: not available for review Interpretation: Sinus rhythm with rate of 70 beats per minute, normal intervals, normal axis. There are some diffusely inverted T-waves. There is nothing to compare this to. To see if these are new or not Discharge Plan Discharge Clinical Impression: Chronic obstructive pulmonary disease Qualifiers: COPD type: unspecified COPD Qualified Code(s): J44.9 - Chronic obstructive pulmonary disease, unspecified Patient Disposition: Home, Self-Care Condition: Improved Instructions: COPD (Chronic Obstructive Pulmonary Disease) (ED) Additional Instructions: Using breathing treatments at home as previously prescribed. Take the antibiotic and prednisone. Return for new or worsening symptoms. Follow-up with primary care provider if the symptoms persist care Prescriptions: New prednisone 20 mg tablet 40 mg PO DAILY Qty: 10 0RF azithromycin 500 mg tablet 500 mg PO DAILY 5 Days Qty: 5 0RF No Action Spiriva Respimat 2.5 mcg/actuation mist 2 inh inhalation Q24H 90 Days Qty: 4 3RF albuterol sulfate 90 mcg/actuation HFA aerosol inhaler 2 puff inhalation Q4H PRN (Reason: shortness of breath or wheezing) Qty: 8.5 5RF escitalopram oxalate 20 mg tablet 5 mg PO DAILY Patient Comments: pt weaning off bupropion HCl 300 mg tablet extended release 24 hr 100 mg PO QAM Patient Comments: pt weaning herself levothyroxine 50 mcg tablet 50 mcg PO QDAY Qty: 90 3RF ergocalciferol (vitamin D2) 1,250 mcg (50,000 unit) capsule 50,000 unit PO QWEEK Qty: 12 1RF trazodone 100 mg tablet 100 mg PO QHS Qty: 90 0RF betamethasone dipropionate 0.05 % ointment 1 applic topical BID PRN (Reason: itching) Qty: 45 2RF Follow Up/Referrals: Omar Dominguez MD [Primary Care Provider] - Stand Alone Forms: Journal[employer] Info Instructions
[2023-12-01] MEDS: IPRAT-ALBUT 0.5-2.5 MG/3 ML NEB 1 NEB IH (13:23)
[2023-12-01] MEDS: METHYLPREDNISOLONE SOD SUCC 62.5 MG/ML (125) 125 MG IVP (13:23)
[2023-12-01 13:25] LABS: Basophils Absolute Auto 0.03 K/uL (0.00-0.30); Basophils Percent Auto 0.5 % (0.0-3.0); Eosinophils Absolute Auto 0.13 K/uL (0.00-0.50); Hematocrit 50.2 % (33.0-51.0); Hemoglobin* 15.4 gm/dL (12.0-16.0); Immature Granulocytes Abs Auto 0.01 K/uL (0.00-0.30); Immature Granulocytes Pct Auto 0.2 %; Lymphocytes Percent Auto 19.7 % (20-44); Mean Corpuscular HGB Conc 31 gm/dL (32-36); Mean Corpuscular Hemoglobin 30 pg (26-34); Mean Corpuscular Volume 96 fL (80-100); Monocytes Percent Auto 7.1 % (0.0-11.0); Neutrophils Absolute Auto 4.56 K/uL (1.7-7.0); Neutrophils Percent Auto 70.5 % (42.0-72.0); Platelet Count* 245 K/uL (140-440); RDW Coefficient of Variation % 14.7 % (11.5-15.5); Red Blood Count 5.21 m/uL (4.00-5.20); White Blood Count* 6.46 K/uL (4.50-11.00)
[2023-12-01 13:26] LABS: Slide Review Reflex No
[2023-12-01 13:43] LABS: Albumin* 4.3 g/dL (3.3-5.0); Chloride* 97 mmol/L (96-114); Potassium* 4.2 mmol/L (3.6-5.1); Sodium* 139 mmol/L (135-149)
[2023-12-01 13:45] LABS: Creatinine* 0.7 mg/dL (0.5-1.5); Est. Creatinine Clearance* 47.79; Estimated Glomerular Filt Rate 95 ml/min
[2023-12-01 13:46] LABS: Alanine Aminotransferase* 11 U/L (4-35); Alkaline Phosphatase* 99 U/L (40-150); Anion Gap 7 mEq/L (7-15); Aspartate Amino Transferase* 16 U/L (12-35); Bilirubin Total* 0.4 mg/dL (0.1-1.5); Blood Urea Nitrogen* 14 mg/dL (7-30); Calcium* 9.4 mg/dL (8.4-10.6); Carbon Dioxide* 35 mmol/L (20-32); Glucose* 100 mg/dL (60-115)
[2023-12-01 13:55] LABS: NT Pro B Type NatriureticPept* 2230 pg/mL
[2023-12-01 17:00] LABS: Free T4 Free Thyroxine* 1.29 ng/dL (0.70-1.85)
--- NOTE | 2023-12-02 12:46 | ED.NURSE ---
Contacted patient regarding official read from Radiologist. Per Dr. Dickson, patient has pneumonia and needs to continue antibiotics. Patient instructed to take antibiotics and follow up with increasing symptoms or symptoms not going away. Verbalizes understanding.
== END 2023-12-01 14:28 | disposition home or self-care (01) ==
PROVIDERS: Emergency Provider Student in an Organized Health Care Education/Training Program; PCP Family Medicine
DX: J44.9 Chronic obstructive pulmonary disease, unspecified (principal)
CPT/HCPCS: 36415; 71046; 80053; 83880; 84439; 84443; 84484; 85025; 87631; 93005; 94640; 96374; 99283; 99284; J2930

== ENCOUNTER 2024-03-29 10:33 | Outpatient (CLI) | payer BC, SELFPAY ==
--- OUTSIDE RECORDS SUMMARY | 2024-03-29 10:36 | XMS_ITS | Clinical Summary ---
Author Organization [facility] Address [place], [place] [address] Care Team Providers Care Wildlife Photographer Name Role Phone Pcp, No Primary Care Provider Unavailabl e Allergies No known active allergies Medications Medication Sig Dispensed Refills Start Date End Date Status ergocalciferol (VITAMIN D2; DRISDOL) 50,000 unit capsuleIndications :Vitamin D deficiency Take 1 Capsule (50,000 units) by mouth once weekly. 4 Capsule 09/13/2021 Active melatonin 10 mg capIndications:Ins omnia, unspecified type Take two capsules by mouth at bedtime. 90 Capsule 09/11/2021 Active Additional Information Patient taking differently: 10 mgOral BEDTIME, Reported on 12/21/2021 traZODone (DESYREL) 50 mg tabletIndications: Insomnia, unspecified type Take 1 Tablet (50 mg) by mouth at bedtime if needed for Sleep. 30 Tablet 09/11/2021 Active hydrOXYzine pamoate (VISTARIL) 25 mg capsuleIndications :Anxiety Take 1 Capsule (25 mg) by mouth at bedtime if needed for Anxiety. 30 capsule. 09/11/2021 Active albuterol HFA (PRO-AIR; VENTOLIN; PROVENTIL) 90 mcg/actuation inhalerIndications :Smokers' cough (HC),Wheezing Inhale 1-2 Puffs by mouth every 4 hours if needed for shortness of breath 18 g 09/11/2021 Active clobetasol 0.05% (TEMOVATE 0.05% OINTMENT) 0.05 % ointmentIndication s:Psoriasis Apply to affected area 2 times per day for up to 2 weeks as directed. 45 g 09/12/2021 Active fluticasone propion-salmeteroL (ADVAIR) 250-50 mcg/Dose diskus inhaler Inhale 1 Puff by mouth every 12 hours. Active levothyroxine (SYNTHROID) 50 mcg tablet Take 50 mcg by mouth before breakfast. Active Active Problems Problem Noted Date Diagnosed [...] in the past and has gone to nursing home for this. Last was 10 years ago. [...] Comments Blood Pressure 126/89 12/24/2021 6:05 AM BEAM PRESS OPERATOR Pulse 84 12/24/2021 6:05 AM BEAM PRESS OPERATOR Temperature 36.6 ??C (97.8 ??F) 12/24/2021 6:05 AM CS T Respiratory Rate 12 12/24/2021 6:05 AM BEAM PRESS OPERATOR Oxygen Saturation 94% 12/24/2021 6:05 AM BEAM PRESS OPERATOR Inhaled Oxygen Concentration - - Weight 113.9 kg (251 lb) 12/21/2021 4:00 AM BEAM PRESS OPERATOR Height 162.6 cm (5' 4) 12/21/2021 4:00 AM BEAM PRESS OPERATOR Body Mass Index 43.08 12/21/2021 4:00 AM BEAM PRESS OPERATOR Plan of Treatment Health Maintenance Due Date [...] season) 2023 09/12/2021 Influenza for age 65+ 06/19/2024 Colonoscopy through age 75 04/03/2025 04/03/2020 Tetanus booster 03/27/2030 03/27/2020 Hepatitis C screening for ag e 18-79 Completed 03/27/2020 Tdap Completed 03/27/2020 Zoster (shingles) series for age 50+ Completed 06/07/2020, 03/27/2020 Procedures Procedure Name Priority Date/Time Associated Diagnosis Comments COLONOSCOPY 04/03/2020 11:05 AM CDT ANTI HCV Routine 03/27/2020 12:31 PM CDT Need for hepatitis C screening test LIPID PANEL W REFLEX MEASURED LDL Routine 01/16/2017 12:28 PM CDT Screening cholesterol level from Last 3 Months or Most Recently Relevant to Health Maintenance Results * COLONOSCOPY (04/03/2020 11:05 AM CDT) 04/03/2020 11:0 5 AM CDT Narrative Transcriptions Norris Snyder, - 04/04/2020 10:31 AM CDT Patient Name: Eugenia White Procedure Date: 04/03/2020 Gender: Female Date of : 1955 Admit Type: Ambulatory Procedure: Colonoscopy Proceduralist: Norris Snyder MD [facility] Indications/Pre-Op Diagnosis: Screening in patient at increased risk:Family history of 1st-degree relative withcolorectal cancer, This is the patient's firstcolonoscopy Medications: Propofol per Anesthesia Procedure Description: The patient had risks, benefits and alternatives explained to andgave informed consent. The patient had a stable cardiopulmonary status and judged an adequate candidate for conscious sedation. The colonoscope was passed through the anus and advanced to thececum, identified by appendiceal orifice and ileocecal valve. Thecolonoscopy was performed without difficulty. The patient tolerated the procedure well. The ileocecal valve, appendiceal orifice, and rectum were photographed. Complications: No immediate complications. Estimated Blood Loss & Specimen: Estimated blood loss: none. Specimen collected - Yes and sent to Laboratory Findings: A 5 mm polyp was found in the ascending colon. The polyp was sessile. The polyp was removed with a hot snare. Resection and retrieval were complete. Verification of patient identification for the specimen was done. Estimated blood loss was minimal. A 4 mm polyp was found in the splenic flexure. The polyp was sessile. The polyp was removed with a cold biopsy forceps. Resection and retrieval were complete. Verification of patient identification forthe specimen was done. Estimated blood loss was minimal. A 6 mm polyp was found in the transverse colon. The polyp wassessile. The polyp was removed with a hot snare. Resection and retrieval were complete. Verification of patient identification for the specimen was done. Estimated blood loss was minimal. A 5 mm polyp was found in the rectum. The polyp was sessile. Thepolyp was removed with a hot snare. Resection and retrieval were complete. Verification of patient identification for the specimen was done. Estimated blood loss was minimal. Non-bleeding internal hemorrhoids were found during retroflexion. The hemorrhoids were Grade II (internal hemorrhoids that prolapse butreduce spontaneously). Impressions/Post-Op Diagnosis: - One 5 mm polyp in the ascending colon, removed with a hot snare. Resected and retrieved. - One 4 mm polyp at the splenic flexure, removed with a cold biopsy forceps. Resected and retrieved. - One 6 mm polyp in the transverse colon, removed with a hot snare. Resected and retrieved. - One 5 mm polyp in the rectum, removed with a hot snare. Resectedand retrieved. - Non-bleeding internal hemorrhoids. Recommendation: - Discharge patient to home. - Patient has a contact number available for emergencies. The signsand symptoms of potential delayed complications were discussed with the patient. Return to normal activities tomorrow. Written discharge instructions were provided to the patient. - High fiber diet. - Continue present medications. - Await pathology results. - Repeat colonoscopy in 3 - 5 years for surveillance based onpathology results. Moderate Sedation: Moderate (conscious) sedation was personally administered by an anesthesia professional. The following parameters were monitored:oxygen saturation, heart rate, blood pressure, and response to care. Norris Snyder MD 04/04/2020 10:31:32 AM This report has been signed electronically. Note Initiated On: 04/03/2020 11:05 AM Norris Snyder DO PROCEDURE ORD * ANTI HCV (03/27/2020 12:31 PM CDT) HEPATITIS C ANTIBODY Non-React nisha Non-React nisha 03/27/2020 8:05 PM CDT [facility] Comment:Antibodies to HCV no t detected; does not exclude the possibility of exposure to HCV. Blood BLOOD SPECIMEN / Unknown Butterfly / Unknown 03/27/2020 12:31 PM CDT 03/27/2020 12:34 PM CDT Dami Recio DO SEND OUTS [facility] [address] [place] [address], [place] * (ABNORMAL) LIPID PANEL W REFLEX MEASURED LDL (01/16/2017 12:28 PM CDT) [facility] CHOLESTEROL,TOTAL 220(H) 100 - 199 mg/dL 01/16/2017 2:00 PM CDT [facility] TRIGLYCERIDES 71 <150 mg/dL 01/16/2017 2:00 PM CDT [facility] HDL CHOLESTEROL 68 >40 mg/dL 7 2:00 PM CDT [facility] NON-HDL CHOLESTEROL 152(H) <145 mg/dl 01/16/2017 2:00 PM CDT [facility] CHOL/HDL RATIO 3.24 <4.50 01/16/2017 2:00 PM CDT [facility] LDL CHOLESTEROL 138(H) <=130 mg/dL 01/16/2017 2:00 PM CDT [facility] PATIENT STATUS FASTING 01/16/2017 2:00 PM CDT [facility] Blood BLOOD SPECIMEN / Unknown Butterfly / Unknown 01/16/2017 12:28 PM CDT 01/16/2017 12:28 PM CDT Essie Marhsall DO CHEMISTRY [facility] [address] [place] [address], [place] [phone] from Last 3 Months or Most Recently Relevant to Health Maintenance Advance Directives * Full Code (Latest Code Status on File) Date Activated Date Inactivated Comments 12/23/2021 2:40 PM 12/24/2021 4:43 PM Question Answer Comments Code Status Discussion: Reviewed Preferences * Full Code Date Activated Date Inactivated Comments 12/21/2021 4:32 AM 12/23/2021 2:40 PM Question Answer Comments Code Status Discussion: Unable to Assess Preferences, Provider to review later * Full Code Date Activated Date Inactivated Comments 09/05/2021 10:13 AM 09/17/2021 2:26 PM Question Answer Comments Code Status Discussion: Reviewed Preferences * Full Code Date Activated Date Inactivated Comments 09/04/2021 4:17 PM 09/05/2021 10:13 AM Question Answer Comments Code Status Discussion: Unable to Assess Preferences, Provider to review later * Full Code Date Activated Date Inactivated Comments 04/03/2020 9:35 AM 04/03/2020 3:25 PM Question Answer Comments Code Status Discussion: Discussed Care Teams Wildlife Photographer Relationship Specialty Start Date End Date Pcp, No . PCP - General 03/01/24
--- NOTE | 2024-03-29 11:00 | CRLHL7_ITS ---
For Patients: As a result of the Century Cures Act, medical imaging exams and procedure reports are released immediately into your electronic medical record. You may view this report before your referring provider. If you have questions, please contact your health care provider. Indication: Solitary pulmonary nodule follow-up Technique: CT Chest W ISOVUE [address] Please note that all CT scans at this facility use dose modulation, iterative reconstruction, and/or weight-based dosing when appropriate to reduce radiation dose to as low as reasonably achievable. Comparison: CT 07/10/2021 Findings: Old right-sided rib fracture deformities are present. Chronic deformity of the left clavicle. Glenohumeral alignment normal bilaterally. The upper abdomen is unremarkable. No adenopathy. Stable subcentimeter mediastinal lymph nodes. No pleural or pericardial effusion. Linear scarring within the left lateral angella thorax. Pulmonary emphysema. Stable calcified granulomas within the right upper lobe. Degenerative changes. Leftward curvature thoracic spine. Impression: Emphysema. No suspicious nodule. Old granulomatous change. Previously noted density in the lateral left lung is no longer present. Please note that all CT scans at this facility use dose modulation, iterative reconstruction, and/or weight-based dosing when appropriate to reduce radiation dose to as low as reasonably achievable. Dictated by Omar Rodas MD @ 03/29/2024 1:08:12 PM (Electronically Signed)
[2024-03-29 11:15] LABS: Creatinine* 0.8 mg/dL (0.5-1.5); Estimated Glomerular Filt Rate 81 ml/min
== END 2024-03-29 10:34 | disposition home or self-care (01) ==
LOC: CT 10:34
PROVIDERS: PCP Family Medicine; Visit Provider Family Medicine
DX: R91.1 Solitary pulmonary nodule (principal); J43.9 Emphysema, unspecified
CPT/HCPCS: 36415; 71260; 82565; Q9967

== ENCOUNTER 2024-08-01 11:25 | Outpatient (CLI) | payer BC, SELFPAY | END 2024-08-01 11:26 | disposition home or self-care (01) | PROVIDERS: PCP Family Medicine; Visit Provider Family Medicine | DX: E03.9 Hypothyroidism, unspecified (principal); E55.9 Vitamin D deficiency, unspecified; I10 Essential (primary) hypertension; E66.09 Other obesity due to excess calories | CPT/HCPCS: 80061; 82306; 84443 ==

== ENCOUNTER 2025-01-06 10:36 | Outpatient (CLI) | payer BC, SELFPAY | END 2025-01-06 10:37 | disposition home or self-care (01) | PROVIDERS: PCP Family Medicine; Visit Provider Family Medicine | DX: E11.9 Type 2 diabetes mellitus without complications (principal); I10 Essential (primary) hypertension; E03.9 Hypothyroidism, unspecified; E55.9 Vitamin D deficiency, unspecified; E66.09 Other obesity due to excess calories; R53.83 Other fatigue | CPT/HCPCS: 80048; 83735; 84443 ==

== ENCOUNTER 2025-03-10 10:41 | Outpatient (CLI) | payer BC, SELFPAY | END 2025-03-10 10:42 | disposition home or self-care (01) | LOC: FBOREF 10:41 | PROVIDERS: PCP Family Medicine; Visit Provider Family Medicine | DX: I10 Essential (primary) hypertension (principal) | CPT/HCPCS: 80048 ==

== ENCOUNTER 2025-04-10 10:37 | Outpatient (CLI) | payer BC, SELFPAY ==
--- OUTSIDE RECORDS SUMMARY | 2025-04-05 08:20 | XMS_ITS | Encounter Summary ---
Author Organization [facility] Address [address] [place] [address] Care Team Providers Care Radio Producer Name Role Phone Unavailable Primary Care Provider Unavailabl e Encounter Details Date Type Department Care Team (Latest Contact Info) Description 04/05/2025 8:20 AM CDT - 04/05/2025 8:44 AM CDT Hospital Encounter Department of Laboratory Medicine and Pathology, [facility] in [place], [place] [address] [place] [address] Anu Parada M.D. [address] [place] [address] Chronic Obstructive Pulmonary Disease (HCC) Discharge Disposition: Home or Self Care Social History Tobacco Use Types Packs/Day Years Used Date Smoking Tobacco: Former Cigarettes Q uit: 07/23/2024 Smokeless Tobacco: Never Comments:Pt stated that she quit smoking on 07/23/2024 and did not say when she had started again previously after the initial date of quitting in 2020. Depression Answer Date Recor ded PHQ-9 Total Score (max 27) 8 10/30 Comments Unknown Sex and Gender Information Value Date Recorded Sex Assigned at Female 10/30/2021 12:58 PM FULL ROLL INSPECTOR Legal Sex Female 4:22 AM FULL ROLL INSPECTOR Gender Identity Female 10/30/2021 12:58 PM FULL ROLL INSPECTOR Sexual Orientation Bisexual 10/30/2021 1: 49 PM FULL ROLL INSPECTOR documented as of this encounter Medications at Time of Discharge albuterol 90 mcg/actuation inhaler Inhale 1-2 puffs every 4 (four) hours as needed. 09/11/2021 betamethasone dipropionate 0.05 % ointment Apply 1 Application topically daily. 09/30/2024 budesonide-glycopy r-formoterol (Breztri Aerosphere) 160-9-4.8 mcg/actuation inhaler Inhale 1 puff daily. 08/02/2024 DME Oxygen daily. 11/27/2024 ergocalciferol (DrisdoL) 50,000 Unit capsule Take 50,000 Units by mouth over 168 hr. 09/13/2021 furosemide (Lasix) 40 mg tablet Take 40 mg by mouth every morning. 01/13/2025 ipratropium-albute roL (DuoNeb) 0.5-2.5 mg/3 mL nebulizer solution Inhale 3 mL 4 (four) times a day as needed. 11/27/2024 levothyroxine 75 mcg tablet Take 75 mcg by mouth daily. 07/21/2024 melatonin 10 mg capsule Take 20 mg by mouth at bedtime. metFORMIN (Glucophage) 500 mg tablet Take 500 mg by mouth 2 (two) times a day. Mounjaro 5 mg/0.5 mL pen injector injection ADMINISTER 5 MG UNDER THE SKIN EVERY WEEK FOR 4 WEEKS 03/08/2025 nebulizer accessories kit daily. 10/21/2024 tiotropium (Spiriva Respimat) 2.5 mcg/actuation inhaler Inhale 1 puff 2 (two) times a day. 10/03/2024 traZODone (DESYREL) 100 mg tablet Take 100 mg by mouth at bedtime. documented as of this encounter Plan of Treatment Not on file documented as of this encounter Procedures Procedure Name Priority Date/Time Associated Diagnosis Comments CBC WITH DIFFERENTIAL, B Routine 04/05/2025 8:58 AM CDT Chronic Obstructive Pulmonary Disease (HCC) COMPREHENSIVE METABOLIC PANEL, S/P Routine 04/05/2025 8:58 AM CDT Chronic Obstructive Pulmonary Disease (HCC) documented in this encounter Results * (ABNORMAL) CBC with Differential, Blood (04/05/2025 8:58 AM CDT) Hemoglobin 14.1 11.6 - 15.0 g/dL 04/05/2025 10:14 AM CDT DTL Hematocrit 45.6(H) 35.5 - 44.9 % 04/05/2025 10:14 AM CDT DTL Erythrocytes 4.67 3.92 - 5.13 x10(12)/L 04/05/2025 10:14 AM CDT DTL MCV 97.6 78.2 - 97.9 fL 04/05/2025 10:14 AM CDT DTL RBC Distrib Width 12.5 12.2 - 16.1 % 04/05/2025 10:14 AM CDT DTL Platelet Count 209 157 - 371 x10(9)/L 04/05/2025 10:14 AM CDT DTL Leukocytes 6.7 3.4 - 9.6 x10(9)/L 04/05/2025 10:14 AM CDT DTL Neutrophils 4.59 1.56 - 6.45 x10(9)/L 04/05/2025 10:14 AM CDT DHPM Lymphocytes 1.22 0.95 - 3.07 x10(9)/L 04/05/2025 10:14 AM CDT DTL Monocytes 0.48 0.26 - 0.81 x10(9)/L 04/05/2025 10:14 AM CDT DTL Eosinophils 0.39 0.03 - 0.48 x10(9)/L 04/05/2025 10:14 AM CDT DTL Basophils 0.04 0.01 - 0.08 x10(9)/L 04/05/2025 10:14 AM CDT DTL Blood (Blood, Venous) 04/05/2025 8:58 AM CDT 04/05/2025 9:23 AM CDT us Osiel East M.D. LAB BLOOD ADD-ON Final Resu lt [facility] [address] [place] [address], [facility] DTL [facility] [address] [place] [address] [facility] [address] [place] [address] * (ABNORMAL) Comprehensive Metabolic Panel (04/05/2025 8:58 AM CDT) Potassium, S 4.4 3.6 - 5.2 mmol/L 04/05/2025 10:11 AM CDT DTL Sodium, S 140 135 - 145 mmol/L 04/05/2025 10:11 AM CDT DTL Chloride, S 96(L) 98 - 107 mmol/L 04/05/2025 10:11 AM CDT DTL Bicarbonate, S 31(H) 22 - 29 mmol/L 04/05/2025 10:11 AM CDT DTL Anion Gap 13 7 - 15 04/05/2025 10:11 AM CDT DTL BUN (Blood Urea Nitrogen), S 12 6 - 21 mg/dL 04/05/2025 10:11 AM CDT DTL Creatinine 0.98 0.59 - 1.04 mg/dL 04/05/2025 10:11 AM CDT DTL Estimated GFR (eGFR) 63 >=60 mL/min/BS A 04/05/2025 10:11 AM CDT DTL Comment: Estimated GFR calculated using the 2020 CKD_EPI creatinine equation. Calcium, Total, S 10.0 8.8 - 10.2 mg/dL 04/05/2025 10:11 AM CDT DTL Glucose, S 97 70 - 140 mg/dL 04/05/2025 10:11 AM CDT DTL Protein, Total, S 7.2 6.3 - 7.9 g/dL 04/05/2025 10:11 AM CDT DTL Albumin, S 4.4 3.5 - 5.0 g/dL 04/05/2025 10:11 AM CDT DTL Aspartate Aminotransferase (AST), S 14 8 - 43 U/L 04/05/2025 10:11 AM CDT DTL Alkaline Phosphatase, S 89 35 - 104 U/L 04/05/2025 10:11 AM CDT DTL Alanine Aminotransferase (ALT), S 11 7 - 45 U/L 04/05/2025 10:11 AM CDT DTL Bilirubin, Total, S 0.3 0.0 - 1.2 mg/dL 04/05/2025 10:11 AM CDT DTL Blood (Blood, Venous) 04/05/2025 8:58 AM CDT 04/05/2025 9:39 AM CDT us Osiel East M.D. LAB BLOOD ADD-ON Final Resu lt [facility] [address] [place] [address], [facility] [address] [place] [address] documented in this encounter Visit Diagnoses Diagnosis Chronic Obstructive Pulmonary Disease (HCC) documented in this encounter Additional Health Concerns Assessment Noted Time PHQ-9 Depression Total Score: 8 10/30/19 22 2:00 PM FULL ROLL INSPECTOR documented as of this encounter
--- OUTSIDE RECORDS SUMMARY | 2025-04-05 08:45 | XMS_ITS | Encounter Summary ---
Author Organization [facility] Address [address] [place] [address] Care Team Providers Care Dough Scaler And Mixer Name Role Phone Unavailable Primary Care Provider Unavailabl e Reason for Referral * Outpatient (Routine) - Closed Specialty Diagnoses / Procedures Referred By Contac t Referred To Contact Diagnoses Chronic Obstructive Pulmonary Disease (HCC) Procedures DX Chest AP or PA and Lateral 2 Views Osiel East M.D. [address] [place] [phone] Phone: tel: fax: [facility] Referral ID Status Reason Start Date Expiration Date Visits Re quested Visits Authorized [id number] Closed 11/30/2024 03/02/2026 1 1 Reason for Visit * Outpatient (Routine) - Closed Specialty Diagnoses / Procedures Referred By Contac t Referred To Contact Diagnoses Chronic Obstructive Pulmonary Disease (HCC) Procedures DX Chest AP or PA and Lateral 2 Views [place] [address] Phone: tel: fax: [facility] Referral ID Status Reason Start Date Expiration Date Visits Re quested Visits Authorized [id number] Closed 11/30/2024 03/02/2026 1 1 Encounter Details Date Type Department Care Team (Latest Contact Info) Description 04/05/2025 8:45 AM CDT - 04/05/2025 11:59 PM CDT Hospital Encounter Department of Radiology, [facility], in [place], [place] [address] [place] [address] Anu Parada M.D. [address] [place] [address] Chronic Obstructive Pulmonary Disease (HCC) Discharge Disposition: [...] Sex Assigned at Female 10/30/2021 12:58 PM DRAW FURNACE TENDER Legal Sex Female 4:22 AM DRAW FURNACE TENDER Gender Identity Female 10/30/2021 12:58 PM DRAW FURNACE TENDER Sexual Orientation Bisexual 10/30/2021 1: 49 PM DRAW FURNACE TENDER documented as of this encounter Medications at Time of Discharge albuterol 2.5 mg /3 mL nebulizer solution Inhale by nebulization every 4 (four) hours as needed for wheezing. albuterol 90 mcg/actuation inhaler Inhale 1-2 puffs every 4 (four) hours as needed. 09/11/2021 betamethasone dipropionate 0.05 % ointment Apply 1 Application topically daily. 09/30/2024 budesonide-glycop yr-formoterol (Breztri Aerosphere) 160-9-4.8 mcg/actuation inhaler Inhale 1 puff daily. 08/02/2024 DME Oxygen daily. 11/27/2024 ergocalciferol (DrisdoL) 50,000 Unit capsule Take 50,000 Units by mouth over 168 hr. 09/13/2021 furosemide (Lasix) 40 mg tablet Take 40 mg by mouth every morning. 01/13/2025 guaiFENesin (Mucinex) 600 mg 12 hr tablet Take 1,200 mg by mouth 2 (two) times a day. ipratropium-albut Thania (DuoNeb) 0.5-2.5 mg/3 mL nebulizer solution Inhale [...] Procedure Name Priority Date/Time Associated Diagnosis Comments DX CHEST AP OR PA AND LATERAL 2 VIEWS RAD - Routine (most inpatients and all outpatients) 04/05/2025 9:11 AM CDT Chronic Obstructive Pulmonary Disease (HCC) documented in this encounter Results * DX Chest AP or PA and Lateral 2 Views (04/05/2025 9:11 AM CDT) Anatomical Region Laterality Modality Chest, Thoracic RST LOS, Tho racic ARZ LOS, Thoracic FLA LOS N/A Digital Radiography Impressions 04/05/2025 10:03 AM CDT No acute cardiopulmonary abnormality. Narrative 04/05/2025 10:03 AM CDT EXAM: DX CHEST AP OR PA AND LATERAL 2 VIEWS COMPARISON: 11/22/2024 Lines/tubes: None Mediastinum: The cardiomediastinal silhouette is unchanged. Enlarged central pulmonary arteries. Lungs: Linear right mid lung opacity may be due to atelectasis or scarring. Bronchial wall thickening which could be seen with large airways disease. Pleura: No pleural effusion or pneumothorax. Bones/soft tissue: Old rib fractures and ununited left clavicle fracture. Procedure Note Huey Simons M.D. - 04/05/2025 EXAM: DX CHEST AP OR PA AND LATERAL 2 VIEWS COMPARISON: 11/22/2024 Lines/tubes: None Mediastinum: The cardiomediastinal silhouette is unchanged. Enlargedcentral pulmonary arteries. Lungs: Linear right mid lung opacity may be due to atelectasis orscarring. Bronchial wall thickening which could be seen with large airwaysdisease. Pleura: No pleural effusion or pneumothorax. Bones/soft tissue: Old rib fractures and ununited left clavicle fracture. IMPRESSION: No acute cardiopulmonary abnormality. Osiel East M.D. [facility] PROC EDURES Final Result documented in this encounter Visit Diagnoses Diagnosis Chronic Obstructive Pulmonary Disease (HCC) documented in this encounter Additional Health Concerns Assessment Noted Time PHQ-9 Depression Total Score: 8 10/30/19 22 2:00 PM DRAW FURNACE TENDER documented as of this encounter
--- OUTSIDE RECORDS SUMMARY | 2025-04-05 10:30 | XMS_ITS | Encounter Summary ---
Author Organization [facility] Address [address] [place] [address] Care Team Providers Care Edi Programmer Name Role Phone Unavailable Primary Care Provider Unavailabl e Reason for Visit * Outpatient (Routine) - Closed Specialty Diagnoses / Procedures Referred By Contkia t Referred To Contact Diagnoses Chronic Obstructive Pulmonary Disease (HCC) Procedures Six Minute Walk Osiel East M.D. [address] [place] [phone] Phone: tel: fax: [facility] Referral ID Status Reason Start Date Expiration Date Visits Re quested Visits Authorized [id number] Closed 11/30/2024 03/02/2026 1 1 Encounter Details Date Type Department Care Team ([facility] st Contact Info) Description 04/05/2025 10:30 AM CDT Diagnostic Division of Pulmonary Medicine in [place], [place] [address] [place] [phone] Anu Parada M.D. [address] [place] [phone] Chronic Obstructive Pulmonary Disease (HCC) Social History Tobacco Use Types Packs/Day Years [...] Sex Assigned at Female 10/30/2021 12:58 PM CORPORATE DIRECTOR OF HUMAN RESOURCES Legal Sex Female 4:22 AM CORPORATE DIRECTOR OF HUMAN RESOURCES Gender Identity Female 10/30/2021 12:58 PM CORPORATE DIRECTOR OF HUMAN RESOURCES Sexual Orientation Bisexual 10/30/2021 1: 49 PM CORPORATE DIRECTOR OF HUMAN RESOURCES documented as of this encounter Plan of Treatment Not on file documented as of this encounter Procedures Procedure Name Priority Date/Time Associated Diagnosis Comments 6 MINUTE WALK Routine 04/05/2025 10:23 AM CDT Chronic Obstructive Pulmonary Disease (HCC) documented in this encounter Results * Six Minute Walk (04/05/2025 10:23 AM CDT) Narrative Clarke Heller M.D. - 04/05/2025 11:21 AM CDT Distance: 602 feet (183.5 meters) Baseline SpO2: 92% (room air) Post SpO2: 82% SpO2 devonte: 79% Peak heart rate: 115bpm Peak RPE: 4 Impression: At peak ambulation, heart rate was 69% of age adjusted predicted maximal heart rate to measure the effort. At end of exercise, the dyspnea scale was 4/10 RPE and 2/10 for leg fatigue. Interpretations: This is a satisfactory submaximal 6 minute walk study, for the indication of Chronic Obstructive Pulmonary Disease; there is no prior study. Osiel East M.D. CV STRESS PROCEDURES Final Result documented in this encounter Visit Diagnoses Diagnosis Chronic Obstructive Pulmonary Disease (HCC) documented in this encounter Additional Health Concerns Assessment Noted Time PHQ-9 Depression Total Score: 8 10/30/19 22 2:00 PM CORPORATE DIRECTOR OF HUMAN RESOURCES documented as of this encounter
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
--- OUTSIDE RECORDS SUMMARY | 2025-04-07 14:00 | XMS_ITS | Encounter Summary ---
Author Organization [facility] Address [address] [place] [address] Care Team Providers Care Consultant Teacher Name Role Phone Unavailable Primary Care Provider Unavailabl e Reason for Referral * Outpatient (Routine) - Authorized Specialty Diagnoses / Procedures Referred By Contac t Referred To Contact Diagnoses Chronic Obstructive Pulmonary Disease (HCC) Osiel East M.D. [address] [place] [phone] Phone: tel: fax: Referral ID Status Reason Start Date Expiration Date V isits Requested Visits Authorized [id number] Authorized 04/07/2025 10/07/2026 1 1 Reason for Visit * Reason Comments Patient Education Encounter Details Date Type Department Care Team (Late st Contact Info) Description 04/07/2025 2:00 PM CDT Virtual Visit Division of Pulmonary Medicine in [place], [place] [address] [place] [phone] Osiel East M.D. [address] [place] [phone] Kayla Valdez R.Gregorio.T., L.R.T. Chronic Obstructive Pulmonary Disease (HCC) (Primary Dx) Social History Tobacco Use Types Packs/Day Years [...] Sex Assigned at Female 10/30/2021 12:58 PM TECHNICAL SUPPORT CONSULTANT Legal Sex Female 4:22 AM TECHNICAL SUPPORT CONSULTANT Gender Identity Female 10/30/2021 12:58 PM TECHNICAL SUPPORT CONSULTANT Sexual Orientation Bisexual 10/30/2021 1: 49 PM TECHNICAL SUPPORT CONSULTANT documented as of this encounter Progress Notes * Kayla Valdez R.R.T., Roberth. - 04/07/2025 2:00 PM CDT Consult conducted via real-time audio/video technology by Kayla Valdez R.R.T., Suzanne in [facility] to the patient in Patient's Home. Patient was called about Pulmonary Rehab Education. Patient is very eager to begin program. The nearest program to her is [facility]. Referral placed. All questions answered. Electronically signed by: Kayla Valdez R.R.T., Suzanne 04/07/25 1:44 PM CDT documented in this encounter Plan of Treatment Not on file documented as of this encounter Visit Diagnoses Diagnosis Chronic Obstructive Pulmonary Disease (HCC)- Primary documented in this encounter Additional Health Concerns Assessment Noted Time PHQ-9 Depression Total Score: 8 10/30/19 22 2:00 PM TECHNICAL SUPPORT CONSULTANT documented as of this encounter
--- NOTE | 2025-04-10 11:00 | CRLHL7_ITS ---
For Patients: As a result of the Century Cures Act, medical imaging exams and procedure reports are released immediately into your electronic medical record. You may view this report before your referring provider. If you have questions, please contact your health care provider. INDICATION: Lung cancer screening. History of smoking. High risk patient with greater than 54 pack-year smoking history. TECHNIQUE: Low-dose lung cancer screening non-contrast CT chest. Dose reduction techniques were used. COMPARISON: None. FINDINGS: NODULES: Subtle ill-defined nodular density in the left lung apex measures approximally 3 millimeters, series 4, image 106 multiple ill-defined nodular densities have developed within the left lower lobe measuring up to 9 millimeters. Physically calcified granulomas in the right. LUNGS AND PLEURA: COPD/emphysema. Patchy ill-defined densities left lower lobe. MEDIASTINUM: Atherosclerotic changes. Calcified hilar lymph nodes. CORONARY ARTERY CALCIFICATION: Severe LIMITED UPPER ABDOMEN: Unremarkable. MUSCULOSKELETAL: Chronic right rib and left clavicular fracture deformity. IMPRESSION: 1. Development of multiple ill-defined nodules in the left lower lobe measuring up to 9 millimeters, likely inflammatory. 2. Subtle 3 millimeter nodular density left apex LUNG-RADS CATEGORY: 4B: Suspicious. RADIOLOGIST RECOMMENDATION: Noncontrast CT chest in 3 months. Please note that all CT scans at this facility use dose modulation, iterative reconstruction, and/or weight-based dosing when appropriate to reduce radiation dose to as low as reasonably achievable. Dictated by Omar Rodas MD @ 04/10/2025 12:27:15 PM (Electronically Signed)
--- OUTSIDE RECORDS SUMMARY | 2025-04-11 00:35 | XMS_ITS | Clinical Summary ---
Author Organization [facility] Address [address] [place] [address] Care Team Providers Care Commander Internal Affairs Name Role Phone Omar Dominguez MD Primary Care Provider + Allergies No known active allergies Medications ergocalciferol (VITAMIN D2; DRISDOL) 50,000 unit capsuleIndicatio ns:Vitamin D deficiency Take 1 Capsule (50,000 units) by mouth once weekly. 4 Capsule 1 2:06 PM BOILER COVERER HELPER 09/13/20 Active Additional Information Patient taking differently:50,000 unit Oral Q WEEKLY,on Fridays, Informant: Patient's Recall, Reported on 11/23/2024 albuterol HFA (PRO-AIR; VENTOLIN; PROVENTIL) 90 mcg/actuation inhalerIndicatio ns:Smokers' cough (HC),Wheezing Inhale 1-2 Puffs by mouth every 4 hours if needed for shortness of breath 18 g 1 2:06 PM BOILER COVERER HELPER 09/11/20 Active Additional Information Patient taking differently: 2 PuffInhalation Q 4H PRN, SOB, Informant: Patient's Recall, Reported on 11/23/2024 betamethasone dipropionate 0.05 % ointment Apply topically to affected area(s). APPLY TOPICALLY TO THE AFFECTED AREA TWICE DAILY NEEDED FOR ITCHING 09/30/20 Active Breztri Aerosphere 160-9-4.8 mcg/actuation HFAA Inhale 1 Puff by mouth once daily. 08/02/20 24 Active Spiriva Respimat 2.5 mcg/actuation mist for inhalation Inhale 1 Puff by mouth two times daily. 10/03/20 Active levothyroxine (SYNTHROID) 75 mcg tablet Take 75 mcg by mouth once daily. 07/21/20 Active traZODone (DESYREL) 100 mg tablet Take 100 mg by mouth at bedtime. 08/15/20 Active melatonin 10 mg cap Take 20 mg by mouth at bedtime. Active NebulizerIndicat ions:COPD exacerbation (HC) Nebulizer, disposable neb kit x 4, reuseable neb kit x 1, mask x 1, filters x 1. Frequency of use: daily; Length of need: 99 months 1 Each 10/21/19 25 Active acetaminophen/ca ffeine (EXCEDRIN ASPIRIN FREE ORAL) Take by mouth. Activ e metFORMIN (GLUCOPHAGE) 500 mg tablet Take 500 mg by mouth two times daily with meals. Active WalkerIndication s:COPD with acute exacerbation (HC),Acute pain of both knees,Claudicati on,Pain in joint of left knee Walker with 4 wheels and a basket for home use. 1 Each 11/24/19 25 Active oxygen-air delivery systems (HOME OXYGEN)Indicatio ns:COPD with acute exacerbation (HC) Oxygen for home use. Liters per minute: 1 liter at rest and 2 per nasal cannula with activity. Frequency of use: Continuous with portability.;. Length of need: 99 Months. 1 Each 11/27/19 25 Active oseltamivir (TAMIFLU) 75 mg capsuleIndicatio ns:Influenza A Take 1 Capsule (75 mg) by mouth two times daily. Take one pill this evening to complete your 5 day course. 1 Capsule 11/27/19 25 Active albuterol-ipratr opium (DUONEB) (2.5-0.5 mg) in 3 mL NEBULIZATION solutionIndicati ons:COPD exacerbation (HC) Inhale 3 mL via a nebulizer 4 times daily if needed for Shortness Of Breath or Wheezing. 180 mL 1 11/27/19 25 Active Active Problems Problem Noted Date Diagnosed Date Influenza A 11/23/2024 Acute heart failure with pre served ejection fraction (HFpEF, >= 50%) 10/17/2024 Hypercapnia 10/17/2024 Asthma 10/17/2024 Unilateral emphysema 10/17/2024 COPD (chronic obstructive pulmonary disease) Acute and chronic respiratory failure with hyper capnia 10/17/2024 COPD with acute exacerbation 10/17/2024 Type 2 diabetes mellitus 10/17/2024 Other emphysema 12/21/2021 Alcohol use disorder, severe, dependence 022 Vitamin D deficiency 12/21/2021 Asthma 12/21/2021 Hypothyroid 12/21/2021 Major depressive disorder, recurrent episode, mo derate 09/05/2021 Tubular adenoma of colon 04/03/2020 Overview (04/10/2020): The polyps removed from your colon were [...] Other psoriasis 03/17/2008 Alcohol dependence in remission Overview (03/17/2008): She has been in treatment on more [...] in the past and has gone to [facility] for this. Last was 10 years ago. Polyp of colon Immunizations Immunization Administration Dates Next Due COVID-19 vaccine (Fabi-J&J) [...] 4 12/21/2021 Social Connections Answer Date Recorded Do you often feel lonely or isolated from those around you? 0 11/22/2024 Alcohol Use Answer Date Recorded How often do you have a drink containing alcohol ? 4 09/04/2021 How many drinks containing a lcohol do you have on a typical day when you are drinking? 2 09/04/2021 How often do you have five or more drinks on one occasion? 4 09/04/2021 Financial Resource Strain Answer Date R ecorded Difficulty of Paying Living Expenses 2 10/17/2024 Difficulty of Paying Living Expenses 1 10/17/2024 Food Insecurity Answer Date Recorded Do you worry your food will run out before you are able to buy more? 2 11/22/2024 Transportation Needs Answer Date Record ed Does lack of transportation keep you from medica l appointments? 1 11/22/2024 Does lack of transportation keep you from work, meetings or getting things that you need? 1 11/22/2024 Housing Stability Answer Date Recorded What is your housing situation today? 1 11/22/2024 Interpersonal Safety Answer Date Record ed Are you being hit, kicked, p ushed or yelled at (see row info)? No 11/22/2024 Interpersonal Safety Abuse 12 - 18 Not on file 11/22/2024 Interpersonal Safety Ambulatory Vulnerability No t on file 11/22/2024 Utilities Answer Date Recorded Do you have trouble paying f or utilities (for example, heat, electricity, water, phone)? 2 11/22/2024 Education Answer Date Recorded What is the highest level of school you have completed or the highest degree you have received? Some college, no degree 09/04/2021 Comments No Sex and Gender Information Value Date Recorded Sex Assigned at Not on file Legal Sex Female 6:51 AM BOILER COVERER HELPER Gender Identity Not on file Sexual Orientation Not on file Occupation Industry Job Start Date Job End Date retired Not on file Not on file Not on file Obstetrics History Last Filed Vital Signs Vital Sign Reading Time Taken Comments Blood Pressure 135/71 11/27/2024 8:43 AM BOILER COVERER HELPER Pulse 70 11/27/2024 11:50 AM BOILER COVERER HELPER Temperature 36.7 C (98 F) 11/27/2024 8:43 AM BOILER COVERER HELPER Respiratory Rate 16 11/27/2024 12:19 PM BOILER COVERER HELPER Oxygen Saturation 88% 11/27/2024 12:19 PM BOILER COVERER HELPER Inhaled Oxygen Concentration - - Weight 133.8 kg (295 lb) 11/22/2024 10:26 AM BOILER COVERER HELPER Height 162.6 cm (5' 4) 11/22/2024 10:26 AM BOILER COVERER HELPER Body Mass Index 50.64 11/22/2024 10:26 AM BOILER COVERER HELPER Plan of Treatment Health Maintenance Due Date Last Done Comments Mammogram for age 45-[address] (for lung CA) age 50-80 2007 RSV vaccine for adults or (1 - Risk 60-74 years 1-dose series) 2017 Pneumococcal series for age 50+ (2 of 2 - PCV) 03/27/2021 03/27/2020 BMI (ht and wt on same day) for age 18+ 06/07/2021 06/07/2020, 08/25/2018, 05/26/2018, Additional history exists DEXA/DXA scan for age 65+ 2022 Lipids for age 45-75 01/16/2022 01/16/2017 Depression screening for age 12+ 12/20/2022 12/20/2021, 09/03/2021, 08/24/2020, Additional history exists COVID-19 vaccine series (2 - 2023- season) 2024 09/12/2021 Colonoscopy through age 75 04/03/2025 04/03/2020 Influenza Vaccine (Season Ended) 2025 Tetanus booster 03/27/2030 03/27/2020 Hepatitis C screening for age 18-79 Completed 03/27/2020 Tdap Completed 03/27/2020 Zoster (shingles) series for age 50+ Completed 06/07/2020, 03/27/2020 Hepatitis B series for 19+ Aged Out N o longer eligible based on patient's age to complete this topic Procedures Procedure Name Priority Date/Time Associated Diagnosis [...] 11:0 5 AM CDT Narrative Transcriptions Norris Snyder DO - 04/04/2020 10:31 AM CDT Patient Name: [...] 11:05 AM Norris Snyder DO PROCEDURE ORD Fi nal Result * ANTI HCV (03/27/2020 12:31 PM CDT) Pathologist [facility] HEPATITIS C ANTIBODY Non-React nisha Non-React nisha 03/27/2020 8:05 PM CDT [facility] Comment:Antibodies to HCV no t detected; does not exclude the possibility of exposure to HCV. Blood BLOOD SPECIMEN / Unknown Butterfly / Unknown 03/27/2020 12:31 PM CDT 03/27/2020 12:34 PM CDT Dami Recio DO SEND OUTS Final Res ult [facility] [address] [place] [address], [place] * (ABNORMAL) LIPID PANEL W REFLEX MEASURED LDL (01/16/2017 12:28 PM CDT) Pathologist [facility] CHOLESTEROL,TOTAL 220(H) 100 - 199 mg/dL 01/16/2017 2:00 PM CDT [facility] TRIGLYCERIDES 71 <150 mg/dL 01/16/2017 2:00 PM CDT [facility] HDL CHOLESTEROL 68 >40 mg/dL 7 2:00 PM CDT [facility] NON-HDL CHOLESTEROL 152(H) <145 mg/dl 01/16/2017 2:00 PM CDT [facility] CHOL/HDL RATIO 3.24 <4.50 01/16/2017 2:00 PM CDT [facility] LDL CHOLESTEROL 138(H) <=130 mg/dL 01/16/2017 2:00 PM CDT [facility] PATIENT STATUS FASTING 01/16/2017 2:00 PM CDT [facility] Blood BLOOD SPECIMEN / Unknown Butterfly / Unknown 01/16/2017 12:28 PM CDT 01/16/2017 12:28 PM CDT us Essie Marshall DO CHEMISTRY Final Resul t [facility] [address] [place] [address], from Last 3 Months or Most Recently Relevant to Health Maintenance Insurance MEDICARE PART A HB ONLY [facility] Member Subscriber Plan / Payer (Ef fective 2022-Present) Name:Eugenia White Relation to Subscriber:Self Name:Eugenia White Payer ID:[id number] (NAIC) Group ID:[id number] Type:Not on file Address: MAILSTOP: [id number] [address] [place] [address] Advance Directives Documents on File Type Date Recorded Patient Recruitment Manager Expl anation Healthcare Directive 06/23/2024 024 * Full Code (Latest Code Status on File) Date Activated Date Inactivated Comments 11/22/2024 3:01 PM 11/27/2024 5:21 PM Question Answer Comments Code Status Discussion: Reviewed Preferences * Full Code Date Activated Date Inactivated Comments 10/17/2024 8:31 PM 10/21/2024 3:15 PM Question Answer Comments Code Status Discussion: Reviewed Preferences * Full Code Date Activated Date Inactivated Comments 12/23/2021 2:40 [...] Answer Comments Code Status Discussion: Reviewed Preferences Care Teams Commander Internal Affairs Relationship Specialty Start Date End Date Omar Dominguez MD [address] [place] [address] PCP - General Family Practice 10/18/24
--- OUTSIDE RECORDS SUMMARY | 2025-04-11 00:35 | XMS_ITS | Encounter Summary ---
Author Organization [facility] Address [address] [place] [address] Care Team Providers Care Blow Molding Machine Tender Name Role Phone Unavailable Primary Care Provider Unavailabl e Reason for Referral * Outpatient (Routine) - Closed Specialty Diagnoses / Procedures Referred By Contac t Referred To Contact Diagnoses Chronic Obstructive Pulmonary Disease (HCC) Procedures DX Chest AP or PA and Lateral 2 Views Osiel East M.D. [address] [place] [phone] Phone: tel: fax: [facility] Referral ID Status Reason Start Date Expiration Date Visits Re quested Visits Authorized [id number] Closed 11/30/2024 03/02/2026 1 1 CLAMP OPERATOR * Outpatient (Routine) - Closed Specialty Diagnoses / Procedures Referred By Contac t Referred To Contact Diagnoses Chronic Obstructive Pulmonary Disease (HCC) Procedures Six Minute Walk Osiel East M.D. [address] [place] [phone] Phone: tel: fax: [facility] Referral ID Status Reason Start Date Expiration Date Visits Re quested Visits Authorized [id number] Closed 11/30/2024 03/02/2026 1 1 CLAMP OPERATOR Encounter Details Date Type Department Care Team (Late st Contact Info) Description 11/30/2024 Orders Only Division of Pulmonary Medicine in [place], [place] [address] [place] [phone] [facility], Provider, Chronic Obstructive Pulmonary Disease (HCC) Social History Tobacco Use Types Packs/Day Years Used Date Smoking Tobacco: Former Cigarettes Q uit: 07/19/2021 Smokeless Tobacco: Never Depression Answer Date Recor ded PHQ-9 Total Score (max 27) 8 10/30 Comments Unknown Sex and Gender Information Value Date Recorded Sex Assigned at Female 10/30/2021 12:58 PM SASH CLAMP OPERATOR Legal Sex Female 4:22 AM SASH CLAMP OPERATOR Gender Identity Female 10/30/2021 12:58 PM SASH CLAMP OPERATOR Sexual Orientation Bisexual 10/30/2021 1: 49 PM SASH CLAMP OPERATOR documented as of this encounter Plan of Treatment Not on file documented as of this encounter Results * Six Minute Walk [...] East M.D. CV STRESS PROCEDURES Final Result * Pulmonary Function Tests (04/05/2025 9:29 AM CDT) FVC 1.80 L 04/05/2025 12:28 PM CDT [facility] FEV1 0.75 L 04/05/2025 12:28 PM CDT [facility] FEV1/FVC 41.56 % 04/05/2025 12:28 PM CDT [facility] BOP35-81% 0.19 L/s 04/05/2025 12:28 PM CDT [facility] PEF PRE 3.40 L/s 04/05/2025 12:28 PM CDT [facility] PIF PRE 3.85 L/s 04/05/2025 12:28 PM CDT [facility] Pre FEF50/FIF50 5.51 % 12:28 PM CDT [facility] FET PRE 13.31 sec 04/05/2025 12:28 PM CDT [facility] DLCO 9.67 ml/(min*mm Hg) 04/05/2025 12:28 PM CDT [facility] DLCOc 9.47 ml/(min*mm Hg) 04/05/2025 12:28 PM CDT [facility] HB 14.10 g(Hb)/dL 04/05/2025 12:28 PM CDT [facility] Pre % Pred [place] SINGLE BREATH 3.18 L 04/05/2025 12:28 PM CDT [facility] TLC 4.39 L 04/05/2025 12:28 PM CDT [facility] FRC Pre 3.12 L 04/05/2025 12:28 PM CDT [facility] RV 2.49 L 04/05/2025 12:28 PM CDT [facility] RV % TLC PRE 56.62 % 04/05/2025 12:28 PM CDT [facility] 04/05/2025 9:29 AM CDT Impressions [facility] - 04/05/2025 12:28 PM CDT Abnormal. Moderate obstruction with air trapping. Diffusing capacity (corrected for hemoglobin) is moderately reduced consistent with a pulmonary parenchymal and/or vascular process. Narrative Procedure Note Clarke Heller M.D. - 04/05/2025 IMPRESSION: Abnormal. Moderate obstruction with air trapping. Diffusing capacity(corrected for hemoglobin) is moderately reduced consistent with apulmonary parenchymal and/or vascular process. us Osiel East M.D. PFT ORDERABLES Final Resul t [facility] NA * DX Chest AP or PA and [...] No acute cardiopulmonary abnormality. Osiel East M.D. [facility] DIAGNOSTIC IMAGING PROC EDURES Final Result * (ABNORMAL) CBC with Differential, Blood (04/05/2025 [...] M.D. LAB BLOOD ADD-ON Final Resu lt [facility] [address] [place] [address], [facility] DTL [facility] [address] [place] [address] [facility] [place] [address] [place] [address] * (ABNORMAL) Comprehensive Metabolic Panel (04/05/2025 8:58 AM CDT) Pathologist [facility] Potassium, S 4.4 3.6 - 5.2 mmol/L [...] M.D. LAB BLOOD ADD-ON Final Resu lt [facility] [address] [place] [address], [facility] DTL [facility] [address] [place] [address] documented in this encounter Visit Diagnoses Diagnosis Chronic Obstructive Pulmonary Disease (HCC) Chronic Obstructive Pulmonary Disease (HCC) Chronic Obstructive Pulmonary Disease (HCC) documented in this encounter Additional Health Concerns Assessment Noted Time PHQ-9 Depression Total Score: 8 10/30/19 22 2:00 PM SASH CLAMP OPERATOR documented as of this encounter
--- OUTSIDE RECORDS SUMMARY | 2025-04-11 00:35 | XMS_ITS | Clinical Summary ---
Author Organization [facility] Address [address] [place] [address] Care Team Providers Care Strategic Planning Consultant Name Role Phone Unavailable Primary Care Provider Unavailabl e Source Comments Patient records contain information from all sites at [facility]. For routine questions regarding patient records, call [phone] during business hours, M-F 8:00 AM - 5:00 PM Central Time. Record requests for emergency care only can be directed to [phone] at any time.[facility] Allergies No known active allergies Medications * This document contains information received from the source organization and may not represent a complete record from that organization. traZODone (DESYREL) 100 mg tablet Take 100 mg by mouth at bedtime. Active nebulizer accessories kit daily. 5 Active DME Oxygen daily. 5 Active albuterol 90 mcg/actuation inhaler Inhale 1-2 puffs every 4 (four) hours as needed. 1 Active betamethasone dipropionate 0.05 % ointment Apply 1 Application topically daily. 4 Active budesonide-glyco pyr-formoterol (Breztri Aerosphere) 160-9-4.8 mcg/actuation inhaler Inhale 1 puff daily. 4 Active ergocalciferol (DrisdoL) 50,000 Unit capsule Take 50,000 Units by mouth over 168 hr. 1 Active ipratropium-albu teroL (DuoNeb) 0.5-2.5 mg/3 mL nebulizer solution Inhale 3 mL 4 (four) times a day as needed. 5 Active levothyroxine 75 mcg tablet Take 75 mcg by mouth daily. 4 Active melatonin 10 mg capsule Take 20 mg by mouth at bedtime. Active metFORMIN (Glucophage) 500 mg tablet Take 500 mg by mouth 2 (two) times a day. Active tiotropium (Spiriva Respimat) 2.5 mcg/actuation inhaler Inhale 1 puff 2 (two) times a day. 4 Active furosemide (Lasix) 40 mg tablet Take 40 mg by mouth every morning. 5 Active Mounjaro 5 mg/0.5 mL pen injector injection ADMINISTER 5 MG UNDER THE SKIN EVERY WEEK FOR 4 WEEKS 5 Active albuterol 2.5 mg /3 mL nebulizer solution Inhale by nebulization every 4 (four) hours as needed for wheezing. Active guaiFENesin (Mucinex) 600 mg 12 hr tablet Take 1,200 mg by mouth 2 (two) times a day. Active Active Problems Problem Noted Date Diagnosed Date Chronic Obstructive Pulmonary Disease 04/10/2025 Nicotine Dependence Cigarettes In Remission 03/20 Hypercapnia 04/10/2025 Morbid Obesity Body Mass Index 45.0-49.9 Adult 0 04/10/2025 Encounters Date Type Department Care Team Description 04/07/2025 2:00 PM CDT Virtual Visit Division of Pulmonary Medicine in [place], [place] [address] [place] [phone] Osiel East M.D. Kayla Valdez, R.R.T., L.R.T. Chronic Obstructive Pulmonary Disease (HCC) (Primary Dx) 04/05/2025 1:30 PM CDT Comprehensive Visit Division of Pulmonary Medicine in [place], [place] [address] [place] [phone] Osiel East M.D. Chronic Obstructive Pulmonary Disease (HCC) (Primary Dx); Nicotine Dependence Cigarettes In Remission; Hypercapnia; Morbid Obesity Body Mass Index 45.0-49.9 Adult (HCC) 04/05/2025 10:30 AM CDT Diagnostic Division of Pulmonary Medicine in [place], [place] [address] [place] [phone] Anu Parada M.D. Chronic Obstructive Pulmonary Disease (HCC) 04/05/2025 8:45 AM CDT - 04/05/2025 11:59 PM CDT Hospital Encounter Department of Radiology, [facility] in [place], [place] [address] [place] [address] Anu Parada M.D. Chronic Obstructive Pulmonary Disease (HCC) Discharge Disposition: Home or Self Care 04/05/2025 8:20 AM CDT - 04/05/2025 8:44 AM CDT Hospital Encounter Department of Laboratory Medicine and Pathology, [facility] in [place], [place] [address] [place] [address] Anu Parada M.D. Chronic Obstructive Pulmonary Disease (HCC) Discharge Disposition: Home or Self Care from Last 3 Months Family History Medical History Relation Name Comments Alcohol abuse Brother Depression Brother Drug abuse Brother Alcohol abuse Father Emphysema Father No Known Problems Mother Alcohol abuse Sister Depression Sister Relation Name Status Comments Brother Alive she has 7 broth ers; one comitted suicide and struggled with alcoholism. Father Mother Sister Alive Social History Tobacco Use Types Packs/Day Years [...] Sex Assigned at Female 10/30/2021 12:58 PM COOPERATIVE EXTENSION AGENT Legal Sex Female 4:22 AM COOPERATIVE EXTENSION AGENT Gender Identity Female 10/30/2021 12:58 PM COOPERATIVE EXTENSION AGENT Sexual Orientation Bisexual 10/30/2021 1: 49 PM COOPERATIVE EXTENSION AGENT Last Filed Vital Signs Vital Sign Reading [...] Mass Index 46.29 04/05/2025 1:12 PM CDT Plan of Treatment Health Maintenance Due Date Last Done Comments Bone Density Scan (Osteoporosis Screen) 1957 CT Colonography 1955 Cologuard 1955 FIT 1955 Hepatitis C Screening 1955 Mammogram 1955 RSV vaccine - (32-36 weeks) or 60+ years (1 - Risk 60-74 years 1-dose series) 2017 Thyroid Stimulating Hormone (TSH) test for thyroid function 12/20/2022 12/20/2021, 09/03/2021, 03/27/2020 COVID-19 Vaccine ( - season) 2024 09/12/2021 Influenza Vaccine (#1) 2024 Depression Screening (Annual PHQ-2) 10/19/2024 Fall Risk Screen (Annual) 10/19/2024 Creatinine Level (Kidney Function Test) 04/05/2026 04/05/2025, 11/27/2024, 11/26/2024, Additional history exists Potassium Level 04/05/2026 04/05/2025, 02/0 06/2025, 11/26/2024, Additional history exists Sodium Level 04/05/2026 04/05/2025, 02/0 06/2025, 11/26/2024, Additional history exists Pneumococcal vaccine (50+ years) (3 of 3 - PCV20 or PCV21) 02/04/2027 02/04/2022, 03/27/2020 Fasting Glucose for Diabetes Screening 04/05/2028 04/05/2025, 11/23/2024, 11/22/2024, Additional history exists DTaP,Tdap,and Td Vaccines (2 - Td or Tdap) 03/27/2030 03/27/2020 Colonoscopy 04/03/2030 04/03/2020 Colorectal Cancer Screening 04/03/2030 Zoster Vaccines Completed 06/07/2020, 03/27/2020 IPV Vaccines Aged Out No longer eligi ble based on patient's age to complete this topic Medical Devices Implanted Type Area Nurse'S Companion Device Identifier Shelf Expiration Date Model / Serial / Lot Knee Implant Knee Implant [place] l: Knee Description:Two titanium kne e replacements Procedures Procedure Name Priority Date/Time Associated Diagnosis Comments 6 MINUTE WALK Routine 04/05/2025 10:23 AM CDT Chronic Obstructive Pulmonary Disease (HCC) PULMONARY FUNCTION TESTS Routine 04/05/2025 9:29 AM CDT Chronic Obstructive Pulmonary Disease (HCC) DX CHEST AP OR PA AND LATERAL 2 VIEWS RAD - Routine (most inpatients and all outpatients) 04/05/2025 9:11 AM CDT Chronic Obstructive Pulmonary Disease (HCC) CBC WITH DIFFERENTIAL, B Routine 04/05/2025 8:58 AM CDT Chronic Obstructive Pulmonary Disease (HCC) COMPREHENSIVE METABOLIC PANEL, S/P Routine 04/05/2025 8:58 AM CDT Chronic Obstructive Pulmonary Disease (HCC) [id number], S Routine 04/05/2025 8:52 AM CDT Chronic Obstructive Pulmonary Disease (HCC) from Last 3 Months Results * Six Minute Walk (04/05/2025 10:23 [...] FVC 1.80 L 04/05/2025 12:28 PM CDT [facility] FEV1 0.75 L 04/05/2025 12:28 PM CDT [facility] FEV1/FVC 41.56 % 04/05/2025 12:28 PM CDT [facility] VCJ93-84% 0.19 L/s 04/05/2025 12:28 PM CDT [facility] PEF PRE 3.40 L/s 04/05/2025 12:28 PM CDT [facility] PIF PRE 3.85 L/s 04/05/2025 12:28 PM CDT [facility] Pre FEF50/FIF50 5.51 % 12:28 PM CDT [facility] FET PRE 13.31 sec 04/05/2025 12:28 PM CDT [facility] DLCO 9.67 ml/(min*mm Hg) 04/05/2025 12:28 PM CDT [facility] DLCOc 9.47 ml/(min*mm Hg) 04/05/2025 12:28 PM CDT [facility] HB 14.10 g(Hb)/dL 04/05/2025 12:28 PM CDT [facility] Pre % Pred VA SINGLE BREATH 3.18 L 04/05/2025 12:28 PM CDT [facility] TLC 4.39 L 04/05/2025 12:28 PM CDT [facility] FRC Pre 3.12 L 04/05/2025 12:28 PM CDT [facility] RV 2.49 L 04/05/2025 12:28 PM CDT [facility] RV % TLC PRE 56.62 % 04/05/2025 12:28 PM CDT [facility] 04/05/2025 9:29 AM CDT Impressions [facility] - 04/05/2025 12:28 PM CDT Abnormal. [...] East M.D. PFT ORDERABLES Final Resul t [facility] [address] * DX Chest AP or PA [...] clavicle fracture. IMPRESSION: No acute cardiopulmonary abnormality. us Osiel East M.D. IMG DIAGNOSTIC IMAGING PROC EDURES Final Result * [...] M.D. LAB BLOOD ADD-ON Final Resu lt [facility] [address] [place] [address], [facility] DTL [facility] [address] [place] [address] [facility] [address] [place] [address] * (ABNORMAL) Comprehensive Metabolic Panel (04/05/2025 8:58 AM CDT) [facility] Potassium, S 4.4 3.6 - 5.2 mmol/L [...] M.D. LAB BLOOD ADD-ON Final Resu lt Performing Organization Address City/[facility]/ZIP Co de Phone Number [facility] [address] [place] [address], [facility] DTL [facility] [address] [place] [address] * Eucit-5-Hqcfhyrajtk (04/05/2025 8:52 AM CDT) Kpbai-0-Wzmpiqu psin, S 188 100 - 190 mg/dL 04/07/2025 1:39 PM CDT [facility] Blood (Blood, Venous) 04/05/2025 8:52 AM CDT 04/07/2025 12:55 PM CDT us Osiel East M.D. LAB BLOOD ADD-ON Final Resu lt Performing Organization Address City/[facility] Co de Phone Number [facility] [address] [place] [address] Formerly named [facility] [address] [place] [address] from Last [address] [facility]
== END 2025-04-10 10:38 | disposition home or self-care (01) ==
LOC: CT 10:38
PROVIDERS: PCP Family Medicine; Visit Provider Family Medicine
DX: Z12.2 Encounter for screening for malignant neoplasm of respiratory organs (principal); R91.8 Other nonspecific abnormal finding of lung field; Z87.891 Personal history of nicotine dependence
CPT/HCPCS: 71271

== ENCOUNTER 2025-06-12 16:34 | Outpatient (CLI) | payer BC, SELFPAY | END 2025-06-12 16:35 | disposition home or self-care (01) | PROVIDERS: PCP Family Medicine; Visit Provider Family Medicine | DX: E03.9 Hypothyroidism, unspecified (principal); E55.9 Vitamin D deficiency, unspecified; I10 Essential (primary) hypertension; E11.9 Type 2 diabetes mellitus without complications | CPT/HCPCS: 80048; 82306; 84443; 85025 ==

== ENCOUNTER 2025-06-22 10:54 | Outpatient (CLI) | payer BC, SELFPAY ==
--- NOTE | 2025-06-22 11:30 | CRLHL7_ITS ---
For Patients: As a result of the Century Cures Act, medical imaging exams and procedure reports are released immediately into your electronic medical record. You may view this report before your referring provider. If you have questions, please contact your health care provider. INDICATION: BILATERAL SCREENING MAMMOGRAM, ASYMPTOMATIC 70 Y/O FEMALE COMPARISON: BASELINE TECHNIQUE: Digital mammogram in CC and MLO projections including computer-aided detection (CAD) and tomosynthesis. BREAST COMPOSITION: There are scattered areas of fibroglandular density. FINDINGS: No suspicious findings. ASSESSMENT: BI-RADS 1 Negative RECOMMENDATION: Annual screening mammogram. A lay language report of this examination will be provided to the patient. Dictated by: Omar Rodas MD @ 06/22/2025 12:27:38 (Electronically Signed)
== END 2025-06-22 10:55 | disposition home or self-care (01) ==
LOC: MAMMO 10:54
PROVIDERS: PCP Family Medicine; Visit Provider Family Medicine
DX: Z12.31 Encounter for screening mammogram for malignant neoplasm of breast (principal)
CPT/HCPCS: 77063; 77067

== ENCOUNTER 2025-07-17 10:42 | Outpatient (CLI) | payer BC, SELFPAY ==
--- NOTE | 2025-07-17 11:00 | CRLHL7_ITS ---
For Patients: As a result of the Cures Act, medical imaging exams and procedure reports are released immediately into your electronic medical record. You may view this report before your referring provider. If you have questions, please contact your health care provider. INDICATION: Three-month follow-up lung nodule TECHNIQUE: Low-dose lung cancer screening non-contrast CT chest. Dose reduction techniques were used. COMPARISON: 04/10/2025 FINDINGS: NODULES: Calcified granulomas are present within the right anterior lung and right lung base. Curvilinear density in the subpleural left apical lung appears similar. Also similar subpleural density on the left. LUNGS AND PLEURA: Emphysema. MEDIASTINUM: Visualized thyroid is normal. Calcified right hilar lymph nodes. CORONARY ARTERY CALCIFICATION: Severe. LIMITED UPPER ABDOMEN: Atherosclerotic changes. Calcified splenic granulomas. MUSCULOSKELETAL: Multiple chronic right-sided rib fracture deformities. Chronic deformity of the left clavicle. Degenerative changes at the right shoulder. IMPRESSION: Sequela of granulomatous disease. Stable subpleural nodular density on the left without significant interval change. Similar appearance of the left apical curvilinear density. Smaller nodules are similar bilaterally. LUNG-RADS CATEGORY: 2: Benign. RADIOLOGIST RECOMMENDATION: Continue annual screening, if eligible, with low-dose CT chest in 12 months. Please note that all CT scans at this facility use dose modulation, iterative reconstruction, and/or weight-based dosing when appropriate to reduce radiation dose to as low as reasonably achievable. Dictated by Omar Rodas MD @ 07/17/2025 11:57:05 AM (Electronically Signed)
== END 2025-07-17 10:43 | disposition home or self-care (01) ==
LOC: CT 10:42
PROVIDERS: PCP Family Medicine; Visit Provider Family Medicine
DX: Z12.2 Encounter for screening for malignant neoplasm of respiratory organs (principal); R91.8 Other nonspecific abnormal finding of lung field; R93.89 Abnormal findings on diagnostic imaging of other specified body structures; Z87.891 Personal history of nicotine dependence
CPT/HCPCS: 71250

== ENCOUNTER 2025-10-17 13:50 | Outpatient (CLI) | payer BC, SELFPAY | END 2025-10-17 13:51 | disposition home or self-care (01) | LOC: NFLDREF 10-24 14:21 | PROVIDERS: PCP Family Medicine; Referring Provider Family Medicine; Visit Provider Family Medicine | DX: G47.00 Insomnia, unspecified (principal); E03.9 Hypothyroidism, unspecified; J44.1 Chronic obstructive pulmonary disease with (acute) exacerbation | CPT/HCPCS: 80048; 80076; 83735; 83880; 84443 ==